=== PATIENT | female | born 1975 | race Caucasian/White ===

== ENCOUNTER 2016-11-18 14:17 | Emergency (ER) | payer BC, OTHER ==
[~2016-11-18] VITALS: Ht 172.7 cm; Wt 122.5 kg
[~2016-11-18 14:17] MED LIST: ACHYD1T PO; DCS100C PO; ESTR1TAB24 PO; IBP600T1 PO; IBP800T PO
[2016-11-18] MEDS ORDERED: NS IV 1000 ML 1,000 ML IV ONE (14:52)
[2016-11-18] MEDS ORDERED: KETOROLAC 30 MG/ML VIAL IVP STA (15:06)
[2016-11-18] MEDS ORDERED: fentaNYL INJECTION 100 MCG/2 ML AMP IVP STA (15:06)
[2016-11-18 15:32] LABS: BASOPHILS % (AUTO) 0 % (0-10); EOSINOPHILS # (AUTO) 0.2 10^3/uL (0.0-0.3); EOSINOPHILS % (AUTO) 1 % (0-10); LYMPHOCYTES # (AUTO) 2.9 X 10^3 (1.0-4.0); LYMPHOCYTES % (AUTO) 23 % (12-44); MEAN CORPUSCULAR HEMOGLOBIN 30 PG (25-34); MEAN CORPUSCULAR HGB CONC 34 G/DL (32-36); MEAN CORPUSCULAR VOLUME 89 FL (80-99); MEAN PLATELET VOLUME 10.5 FL (7.4-10.4); MONOCYTES # (AUTO) 0.9 X 10^3 (0.0-1.0); MONOCYTES % (AUTO) 7 % (0-12); NEUTROPHILS # (AUTO) 8.6 X 10^3 (1.8-7.8); NEUTROPHILS % (AUTO) 69 % (42-75); PLATELET COUNT 242 10^3/uL (130-400); RED BLOOD COUNT 4.56 10^6/uL (4.35-5.85); RED CELL DISTRIBUTION WIDTH 13.4 % (10.0-14.5); WHITE BLOOD COUNT 12.6 10^3/uL (4.3-11.0)
[2016-11-18 15:42] LABS: ALANINE AMINOTRANSFERASE 25 U/L (0-55); ALBUMIN 4.1 GM/DL (3.2-4.5); ANION GAP 8 MMOL/L (5-14); ASPARTATE AMINO TRANSFERASE 16 U/L (5-34); BILIRUBIN,TOTAL 0.4 MG/DL (0.1-1.0); BLOOD UREA NITROGEN 8 MG/DL (7-18); BUN/CREATININE RATIO 11; CALCIUM 9.6 MG/DL (8.5-10.1); CARBON DIOXIDE 26 MMOL/L (21-32); CHLORIDE 104 MMOL/L (98-107); CREATININE SERUM 0.72 MG/DL (0.60-1.30); GFR ESTIMATED > 60; GLUCOSE 123 MG/DL (70-105); POTASSIUM 3.8 MMOL/L (3.6-5.0); SODIUM 138 MMOL/L (135-145); TOTAL PROTEIN 7.1 GM/DL (6.4-8.2); hs C REACTIVE PROTEIN 4.28 MG/DL (0.00-0.50)
--- NOTE | 2016-11-18 15:51 | ED General ---
General Chief Complaint: Facial Problems Stated Complaint: SWELLING LEFT SIDE OF FACE Nursing Triage Note: PT HAS L SIDED FACIAL SWELLING FOR APPROX 4 DAYS, PT HAD ROCEPHIN IM YESTERDAY, WAS SEEN AT DR SIMENTAL OFFICE YESTERDAY Nursing Sepsis Screen: No Definite Risk Source of Information: Patient Exam Limitations: No Limitations History of Present Illness Time Seen by Provider: 15:00 Initial Comments Here with report of left-sided facial swelling over the last 4 days. Seen by her primary care provider and given shot of Rocephin yesterday. Apparently she has had previous surgery to the lymph nodes on that side of the face. This was with an ear nose and throat surgeon from [place]. This person apparently told her that she would need to see somebody else if there is other concerns. She has prescription for Omnicef but has not filled it yet. Reports pain quite significant. Reports that she has felt hot but no documented fever. Denies nausea, vomiting, breathing or swallowing problems. Does have pain to the face causing difficulty with opening mouth. Timing/Duration: 3-4 Days Severity: Moderate Associated Systoms: No Fever/Chills, No Nausea/Vomiting, No Shortness of Air, No Weakness Allergies and Home Medications Allergies Coded Allergies: sumatriptan (Unverified Allergy, Mild, 08/04/12) Home Medications Docusate Sodium 100 Mg Capsule, 100 MG PO BID, (Reported) Estradiol 1 Mg Tablet, 2 PO DAILY, (Reported) Hydrocodone Bit/Acetaminophen 1 Tab Tablet, 1-2 PO Every 3 Hours PRN, (Reported) Ibuprofen 800 Mg Tab, 800 MG PO Q6H PRN, (Reported) Constitutional: see HPI, No chills, fever, No weakness EENTM: see HPI, mouth pain, mouth swelling, No dental problems Respiratory: no symptoms reported Cardiovascular: no symptoms reported Gastrointestinal: no symptoms reported, No nausea, No vomiting Genitourinary: no symptoms reported Musculoskeletal: no symptoms reported Skin: no symptoms reported All Other Systems Reviewed Negative Unless Noted: Yes Past Doxsdid-Xdzgjn-Fyjwua Hx Patient Social History Alcohol Use: Denies Use Recreational Drug Use: No Smoking Status: Never a Smoker Recent Foreign Travel: No Contact w/Someone Who Travel: No Recent Infectious Disease Expo: No Recent Hopitalizations: No Physical Abuse: No Sexual Abuse: No Surgeries History of Surgeries: Yes Surgeries: Gallbladder, 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 Respiratory History of Respiratory Disorde: No Cardiovascular History of Cardiac Disorders: No Neurological History of Neurological Disord: No 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 Gastrointestinal History of Gastrointestinal Di: Yes Musculoskeletal History of Musculoskeletal Dis: No Endocrine History of Endocrine Disorders: No Psychosocial History of Psychiatric Problem: Yes Behavioral Health Disorders: Depression Suicide Risk Score: 0 Integumentary History of Skin or Integumenta: No Blood Transfusions History of Blood Disorders: No Reviewed Nursing Assessment Reviewed/Agree w Nursing PMH: Yes Family Medical History Significant Family History: No Pertinent Family Hx Physical Exam Vital Signs Vital Sign - Last 12Hours 11/18/16 14:35 Temp 98.3 Pulse 98 Resp 18 B/P (MAP) 153/92 Pulse Ox 100 Capillary Refill : Less Than 3 Seconds General Appearance: No Apparent Distress, WD/WN HEENT: PERRL/EOMI, Pharynx Normal, Other (moderate tenderness and swelling near the left parotid gland. Within the mouth near the rear molar there is redness with small pustule centrally at the gland on the bucal surface. Very tender to palpation. Moderate swelling noted.) Neck: Full Range of Motion, Non Tender, Supple Respiratory: Lungs Clear, Normal Breath Sounds Cardiovascular: Regular Rate, Rhythm, No Murmur Gastrointestinal: Non Tender, Soft Back: Normal Inspection, No CVA Tenderness, No Vertebral Tenderness Extremity: Normal Range of Motion, Non Tender Neurologic/Psychiatric: Alert, Oriented x3 Skin: Normal Color, Warm/Dry Progress/Results/Core Measures Results/Orders Lab Results Laboratory Tests Test 11/18/16 15:15 Range/Units White Blood Count 12.6 H 4.3-11.0 10^3/uL Red Blood Count 4.56 4.35-5.85 10^6/uL Hemoglobin 13.7 11.5-16.0 G/DL Hematocrit 40 35-52 % Mean Corpuscular Volume 89 80-99 FL Mean Corpuscular Hemoglobin 30 25-34 PG Mean Corpuscular Hemoglobin Concent 34 32-36 G/DL Red Cell Distribution Width 13.4 10.0-14.5 % Platelet Count 242 130-400 10^3/uL Mean Platelet Volume 10.5 H 7.4-10.4 FL Neutrophils (%) (Auto) 69 42-75 % Lymphocytes (%) (Auto) 23 12-44 % Monocytes (%) (Auto) 7 0-12 % Eosinophils (%) (Auto) 1 0-10 % Basophils (%) (Auto) 0 0-10 % Neutrophils # (Auto) 8.6 H 1.8-7.8 X 10^3 Lymphocytes # (Auto) 2.9 1.0-4.0 X 10^3 Monocytes # (Auto) 0.9 0.0-1.0 X 10^3 Eosinophils # (Auto) 0.2 0.0-0.3 10^3/uL Basophils # (Auto) 0.0 0.0-0.1 10^3/uL Sodium Level 138 135-145 MMOL/L Potassium Level 3.8 3.6-5.0 MMOL/L Chloride Level 104 98-107 MMOL/L Carbon Dioxide Level 26 21-32 MMOL/L Anion Gap 8 5-14 MMOL/L Blood Urea Nitrogen 8 7-18 MG/DL Creatinine 0.72 0.60-1.30 MG/DL Estimat Glomerular Filtration Rate > 60 BUN/Creatinine Ratio 11 Glucose Level 123 H 70-105 MG/DL Calcium Level 9.6 8.5-10.1 MG/DL Total Bilirubin 0.4 0.1-1.0 MG/DL Aspartate Amino Transf (AST/SGOT) 16 5-34 U/L Alanine Aminotransferase (ALT/SGPT) 25 0-55 U/L Alkaline Phosphatase 91 40-136 U/L C-Reactive Protein High Sensitivity 4.28 H 0.00-0.50 MG/DL Total Protein 7.1 6.4-8.2 GM/DL Albumin 4.1 3.2-4.5 GM/DL My Orders Orders - JORDANA SMITH MD Saline Lock/Iv-Start (11/18/16 14:52) Cbc With Automated Diff (11/18/16 14:52) Comprehensive Metabolic Panel (11/18/16 14:52) Hs C Reactive Protein (11/18/16 14:52) Ns Iv 1000 Ml (Sodium Chloride 0.9%) (11/18/16 14:52) Fentanyl Injection (Sublimaze Injection (11/18/16 15:06) Ketorolac Injection (Toradol Injection) (11/18/16 15:06) Ct Maxillofacial W (11/18/16 16:30) Iohexol Injection (Omnipaque 350 Mg/Ml 1 (11/18/16 16:45) Ns (Ivpb) (Sodium Chloride 0.9% Ivpb Bag (11/18/16 16:45) Oxycodone/Apap 5/325mg Tablet (Percocet (11/18/16 17:45) Medications Given in ED Current Medications Medications Dose Ordered Sig/Emily Route Start Time Stop Time Status Last Admin Dose Admin Iohexol 100 ml ONCE ONCE IV 11/18/16 16:45 11/18/16 16:46 DC 11/18/16 16:49 100 ML Sodium Chloride 100 ml ONCE ONCE IV 11/18/16 16:45 11/18/16 16:46 DC 11/18/16 16:50 80 ML Sodium Chloride 1,000 ml @ 0 mls/hr Q0M ONCE IV 11/18/16 14:52 11/18/16 14:53 DC 11/18/16 15:21 1,000 MLS/HR Vital Signs/I&O Vital Sign - Last 12Hours 11/18/16 14:35 Temp 98.3 Pulse 98 Resp 18 B/P (MAP) 153/92 Pulse Ox 100 Intake and Output 11/19/16 00:00 Intake Total 1000 ml Balance 1000 ml Blood Pressure Mean: 112 Progress Note : Progress Note Seen and evaluated. IV, labs, normal saline 1 L bolus, fentanyl 75 g IV and Toradol [address] maxillofacial with contrast ordered. Monitor patient. CT results noted. I did discuss the case with Dr. Yeh at 1726. Findings discussed. He is recommending Ceftin 250 mg by mouth twice a day as well as pain meds with warm moist heat and massage agreement with plan. Also recommend sour drops or sugar-free candy. He will see the patient in the office. Requesting that she call tomorrow morning for appointment and he will see her soon. All of the findings and concerns were discussed with the patient and she agrees. It turns out that her doctor at actually scheduled her an appointment with Dr. Yeh on 29 November although she has markedly worsened since that appointment was made. Earlier appointment would be appreciated. Discharged home with return precautions. Patient verbalize understanding of instructions and agreement with plan. Diagnostic Imaging Diagonstic Imaging: CT Plain Films/CT/US/NM/MRI: other (maxillofacial) Comments NAME: VIRI BRYAN MED REC#: [id number] PT STATUS: REG ER : 1975 PHYSICIAN: JORDANA SMITH MD ADMIT DATE: 11/18/16/ER Signed Date of Exam: 11/18/16 CT MAXILLOFACIAL W PROCEDURE: CT maxillofacial with contrast. TECHNIQUE: After intravenous administration of contrast, axial images were obtained through the face and reformatted into coronal and sagittal planes. INDICATION: Facial swelling. COMPARISON: None. FINDINGS: No acute fracture or other osseous abnormality is seen. The paranasal sinuses and mastoids are clear. The nasal septum is minimally tortuous to the right. The ostiomeatal units are patent bilaterally. The left parotid gland is asymmetrically large and heterogeneous with respect to the right parotid gland. There is moderate enhancement/high density within the particularly the superficial portion of the parotid gland on the left, suggestive of parotitis. There are a few nonenlarged but prominent lymph nodes in the submandibular and submental as well as jugular chains which are probably reactive but nonspecific. Both submandibular glands are slightly prominent in size but otherwise unremarkable. No additional focal mass or abscess is seen. No acute osseous abnormality is suspected. IMPRESSION: 1. The left parotid gland is asymmetrically large heterogeneous with moderate areas of high density/enhancement, particularly in the superficial portion of the gland. No focal mass or abscess is seen. The findings are suggestive of parotitis. 2. Scattered lymph nodes which are prominent but non-pathologically enlarged or nonspecific but likely reactive. Dictated by: Dictated on workstation # [id number] Dict: 11/18/161703 Trans: 11/18/161713 Interpreted by: MARCOS HA DO Electronically signed by: MARCOS HA DO 11/18/161713 Departure Impression Impression: Primary Impression: Parotiditis Disposition: 01 HOME, SELF-CARE Condition: Stable Departure-Patient Inst. Decision time for Depature: 17:49 Referrals: ANTONIO SIMENTAL MD (PCP/Family) Primary Care Physician Patient Instructions: Parotitis Add. Discharge Instructions: All discharge instructions reviewed with patient and/or family. Voiced understanding. Take medications as directed. Follow-up with Dr. Yeh within the next few days. Call his office in the morning for appointment. Return for worse pain, fever, vomiting, weakness, breathing problems, difficulty with swallowing or other concerns as needed. You may use warm, moist heat to the area. Gently massage gland forward to improve excretion. Drink plenty of fluids. You may use sour drops or sugar-free sour candy to help gland express itself. Scripts Oxycodone HCl/Acetaminophen (Oxycodone-Acetaminophen 10-325) 1 Each Tablet 1 EACH PO Q6H, #20 TAB Prov: JORDANA SMITH MD 11/18/16 Cefuroxime Axetil (Cefuroxime) 250 Mg Tablet 250 MG PO BID, #20 TAB Prov: JORDANA SMITH MD 11/18/16 Copy Copies To 1: ARAVIND YEH MD, TIMOTHY D MD Nov 18, 2016 15:51
[2016-11-18] MEDS ORDERED: IOHEXOL 350 MG/ML 100 ML (OMNIPAQUE 350) VIAL IV ONE (16:45)
[2016-11-18] MEDS ORDERED: NS 100 ML (IVPB) BAG IV ONE (16:45)
--- NOTE | 2016-11-18 17:13 | Diagnostic Imaging Report ---
PROCEDURE: CT maxillofacial with contrast. TECHNIQUE: After intravenous administration of contrast, axial images were obtained through the face and reformatted into coronal and sagittal planes. INDICATION: Facial swelling. COMPARISON: None. FINDINGS: No acute fracture or other osseous abnormality is seen. The paranasal sinuses and mastoids are clear. The nasal septum is minimally tortuous to the right. The ostiomeatal units are patent bilaterally. The left parotid gland is asymmetrically large and heterogeneous with respect to the right parotid gland. There is moderate enhancement/high density within the particularly the superficial portion of the parotid gland on the left, suggestive of parotitis. There are a few nonenlarged but prominent lymph nodes in the submandibular and submental as well as jugular chains which are probably reactive but nonspecific. Both submandibular glands are slightly prominent in size but otherwise unremarkable. No additional focal mass or abscess is seen. No acute osseous abnormality is suspected. IMPRESSION: 1. The left parotid gland is asymmetrically large heterogeneous with moderate areas of high density/enhancement, particularly in the superficial portion of the gland. No focal mass or abscess is seen. The findings are suggestive of parotitis. 2. Scattered lymph nodes which are prominent but non-pathologically enlarged or nonspecific but likely reactive. Dictated by: Dictated on workstation # [id number]
[2016-11-18] MEDS ORDERED: oxyCODONE/APAP 5/325MG (PERCOCET 5) TABLET PO STA (17:45)
[2016-11-18] MEDS ORDERED: CEFU250T80 PO (18:02)
[2016-11-18] MEDS ORDERED: OXYC-465 PO (18:02)
[2016-11-18 18:19] VITALS: BP 135/86
== END 2016-11-18 18:19 | disposition home or self-care (01) ==
LOC: EDUNIT# 14:17 → ER 14:21
DX: K11.20 Sialoadenitis, unspecified; Z90.710 Acquired absence of both cervix and uterus; Z87.19 Personal history of other diseases of the digestive system; F32.9 Major depressive disorder, single episode, unspecified
CPT/HCPCS: 36415; 70487; 80053; 85025; 86141

== ENCOUNTER 2017-02-19 13:31 | Inpatient (IN) | payer OTHER ==
[~2017-02-19] VITALS: Ht 175.3 cm; Wt 121.6 kg
[~2017-02-19 13:31] MED LIST changes: +CEFU250T80 PO; +OXYC-465 PO
[2017-02-19] MEDS ORDERED: fentaNYL INJECTION 100 MCG/2 ML AMP IVP STA (13:56)
[2017-02-19 14:30] LABS: BASOPHILS % (AUTO) 0 % (0-10); EOSINOPHILS # (AUTO) 0.2 10^3/uL (0.0-0.3); EOSINOPHILS % (AUTO) 1 % (0-10); HEMATOCRIT 35 % (35-52); HEMOGLOBIN 13.2 G/DL (11.5-16.0); LYMPHOCYTES # (AUTO) 4.3 X 10^3 (1.0-4.0); LYMPHOCYTES % (AUTO) 38 % (12-44); MEAN CORPUSCULAR HEMOGLOBIN 30 PG (25-34); MEAN CORPUSCULAR HGB CONC 38 G/DL (32-36); MEAN CORPUSCULAR VOLUME 80 FL (80-99); MEAN PLATELET VOLUME 9.1 FL (7.4-10.4); MONOCYTES % (AUTO) 9 % (0-12); NEUTROPHILS # (AUTO) 5.7 X 10^3 (1.8-7.8); NEUTROPHILS % (AUTO) 51 % (42-75); PLATELET COUNT 281 10^3/uL (130-400); RED CELL DISTRIBUTION WIDTH 13.2 % (10.0-14.5); WHITE BLOOD COUNT 11.1 10^3/uL (4.3-11.0)
--- NOTE | 2017-02-19 14:40 | ED General ---
General Chief Complaint: Skin/Wound Problems Stated Complaint: POSS ABCESS--POST OP Nursing Triage Note: C/O LEFT FACIAL SWELLING. PT HAD A SIALENDESCOPY PERFORMED AT [facility] AT 02-02-17. HX OF PAROTID STONES. REPORTS PAIN/REDNESS/SWELLING 48 HOURS AFTER THE PROCEDURE BUT SYMPTOMS ARE GETTING WORSE. CURRENTLY ON CLINDYMYACIN. Nursing Sepsis Screen: No Definite Risk Source of Information: Patient Exam Limitations: No Limitations History of Present Illness Time Seen by Provider: 14:25 Initial Comments Here with report of increased swelling to the left side of her face. She had a special procedure done to remove the stones in her parotid gland but apparently it failed. Since she's had increased swelling and pain. She is currently on antibiotics and this is not working. She reports that she had fever of 102F today. She is currently on clindamycin. Was instructed to come to the ER for evaluation for infection and CT of her face. Normally followed at [facility]. Timing/Duration: Getting Worse, Other (2 weeks) Severity: Moderate, Severe Modifying Factors: worse with Movement Associated Systoms: No Chest Pain, No Cough, Fever/Chills, No Nausea/Vomiting, No Shortness of Air, No Weakness Allergies and Home Medications Allergies Coded Allergies: sumatriptan (Unverified Allergy, Mild, 08/04/12) Home Medications Cefuroxime Axetil 250 Mg Tablet, 250 MG PO BID, #20 Prescribed by: JORDANA SMITH on 11/18/161801 Docusate Sodium 100 Mg Capsule, 100 MG PO BID, (Reported) Estradiol 1 Mg Tablet, 2 PO DAILY, (Reported) Hydrocodone Bit/Acetaminophen 1 Tab Tablet, 1-2 PO Every 3 Hours PRN, (Reported) Ibuprofen 800 Mg Tab, 800 MG PO Q6H PRN, (Reported) Oxycodone HCl/Acetaminophen 1 Each Tablet, 1 EACH PO Q6H, #20 Prescribed by: JORDANA SMITH on 11/18/161801 Constitutional: see HPI, No chills, fever, malaise, No weakness EENTM: see HPI, mouth pain, mouth swelling Respiratory: no symptoms reported, No cough, No short of breath Cardiovascular: no symptoms reported Gastrointestinal: No nausea, No vomiting Genitourinary: no symptoms reported Musculoskeletal: no symptoms reported Skin: change in color (left cheek), lumps (left cheek) Psychiatric/Neurological: No Symptoms Reported All Other Systems Reviewed Negative Unless Noted: Yes Past Lcrnsva-Hovshc-Gdfrpz Hx Patient Social History Alcohol Use: Denies Use Recreational Drug Use: No Smoking Status: Never a Smoker Recent Foreign Travel: No Contact w/Someone Who Travel: No Recent Infectious Disease Expo: No Recent Hopitalizations: No Surgeries History of Surgeries: Yes (parotid gland surgery) Surgeries: Gallbladder, 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 Respiratory History of Respiratory Disorde: No Cardiovascular History of Cardiac Disorders: No Neurological History of Neurological Disord: No 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 Gastrointestinal History of Gastrointestinal Di: Yes Musculoskeletal History of Musculoskeletal Dis: No Endocrine History of Endocrine Disorders: No Psychosocial History of Psychiatric Problem: Yes Behavioral Health Disorders: Depression Integumentary History of Skin or Integumenta: No Blood Transfusions History of Blood Disorders: No Reviewed Nursing Assessment Reviewed/Agree w Nursing PMH: Yes Family Medical History Significant Family History: No Pertinent Family Hx Physical Exam Vital Signs Vital Sign - Last 12Hours 02/19/17 13:54 Temp 100.1 Pulse 82 Resp 18 B/P (MAP) 167/110 (129) Pulse Ox 98 O2 Delivery Room Air Capillary Refill : Less Than 3 Seconds General Appearance: No Apparent Distress, WD/WN HEENT: PERRL/EOMI, Pharynx Normal, Other (large swelling over the area of the parotid gland on the left with erythema to the face around that area swelling.) Neck: Non Tender, Supple Respiratory: Lungs Clear, Normal Breath Sounds Cardiovascular: Regular Rate, Rhythm, No Murmur Gastrointestinal: Non Tender, Soft Back: Normal Inspection, No CVA Tenderness, No Vertebral Tenderness Extremity: Normal Range of Motion, Non Tender Neurologic/Psychiatric: Alert, Oriented x3 Skin: Normal Color, Warm/Dry Focused Exam Evaluation Lactate Level Laboratory Tests 02/19/17 14:20: Lactic Acid Level 0.95 Lactic Acid Level Laboratory Tests Test 02/19/17 14:20 Lactic Acid Level 0.95 MMOL/L (0.50-2.00) Progress/Results/Core Measures Suspected Sepsis Recent Fever Within 48 Hours: Yes Infection Criteria Present: Documented Infection New/Unexplained Altered Menta: No Sepsis Screen: No Definite Risk Sepsis Diagnosis: SIRS Temperature:100.1 Pulse: 82 Respiratory Rate: 18 Laboratory Tests 02/19/17 14:20: White Blood Count 11.1H Blood Pressure 167 /110 Mean: 129 Laboratory Tests 02/19/17 14:20: Lactic Acid Level 0.95 Laboratory Tests 02/19/17 14:20: Creatinine 0.76, Platelet Count 281, Total Bilirubin 0.4 02/19/17 14:36: INR Comment 0.9 Results/Orders Lab Results Laboratory Tests Test 02/19/17 14:20 02/19/17 14:36 Range/Units White Blood Count 11.1 H 4.3-11.0 10^3/uL Red Blood Count 4.40 4.35-5.85 10^6/uL Hemoglobin 13.2 11.5-16.0 G/DL Hematocrit 35 35-52 % Mean Corpuscular Volume 80 80-99 FL Mean Corpuscular Hemoglobin 30 25-34 PG Mean Corpuscular Hemoglobin Concent 38 H 32-36 G/DL Red Cell Distribution Width 13.2 10.0-14.5 % Platelet Count 281 130-400 10^3/uL Mean Platelet Volume 9.1 7.4-10.4 FL Neutrophils (%) (Auto) 51 42-75 % Lymphocytes (%) (Auto) 38 12-44 % Monocytes (%) (Auto) 9 0-12 % Eosinophils (%) (Auto) 1 0-10 % Basophils (%) (Auto) 0 0-10 % Neutrophils # (Auto) 5.7 1.8-7.8 X 10^3 Lymphocytes # (Auto) 4.3 H 1.0-4.0 X 10^3 Monocytes # (Auto) 1.0 0.0-1.0 X 10^3 Eosinophils # (Auto) 0.2 0.0-0.3 10^3/uL Basophils # (Auto) 0.0 0.0-0.1 10^3/uL Sodium Level 139 135-145 MMOL/L Potassium Level 3.7 3.6-5.0 MMOL/L Chloride Level 104 98-107 MMOL/L Carbon Dioxide Level 25 21-32 MMOL/L Anion Gap 10 5-14 MMOL/L Blood Urea Nitrogen 12 7-18 MG/DL Creatinine 0.76 0.60-1.30 MG/DL Estimat Glomerular Filtration Rate > 60 BUN/Creatinine Ratio 16 Glucose Level 105 70-105 MG/DL Lactic Acid Level 0.95 0.50-2.00 MMOL/L Calcium Level 9.3 8.5-10.1 MG/DL Total Bilirubin 0.4 0.1-1.0 MG/DL Aspartate Amino Transf (AST/SGOT) 24 5-34 U/L Alanine Aminotransferase (ALT/SGPT) 35 0-55 U/L Alkaline Phosphatase 81 40-136 U/L C-Reactive Protein High Sensitivity 1.89 H 0.00-0.50 MG/DL Total Protein 7.0 6.4-8.2 GM/DL Albumin 4.0 3.2-4.5 GM/DL Prothrombin Time 12.5 12.2-14.7 SEC INR Comment 0.9 0.8-1.4 Activated Partial Thromboplast Time 26 24-35 SEC My Orders Orders - JORDANA SMITH MD Cbc With Automated Diff (02/19/17 13:48) Comprehensive Metabolic Panel (02/19/17 13:48) Lactic Acid Analyzer (02/19/17 13:48) Blood Culture (02/19/17 13:48) Protime With Inr (02/19/17 13:48) Partial Thromboplastin Time (02/19/17 13:48) O2 (02/19/17 13:48) Saline Lock/Iv-Start (02/19/17 13:48) Vital Signs Adult Sepsis Patie Q1H (02/19/17 13:48) Remove Rings In Anticipation O (02/19/17 13:48) Fentanyl Injection (Sublimaze Injection (02/19/17 13:56) Ct Maxillofacial W (02/19/17 14:35) Iohexol Injection (Omnipaque 350 Mg/Ml 1 (02/19/17 15:00) Ns (Ivpb) (Sodium Chloride 0.9% Ivpb Bag (02/19/17 15:00) Pharmacy Communication (Pharmacy Communi (02/19/17 14:46) Hs C Reactive Protein (02/19/17 14:57) Ketorolac Injection (Toradol Injection) (02/19/17 16:44) Hydromorphone Injection (Dilaudid Inject (02/19/17 16:44) Ns Iv 1000 Ml (Sodium Chloride 0.9%) (02/19/17 17:09) Let Solution (Let Solution) (02/19/17 17:28) Let Solution (Let Solution) (02/19/17 17:28) Anaerobic Culture (02/19/17 17:51) Wound Culture (02/19/17 17:51) Medications Given in ED Current Medications Medications Dose Ordered Sig/Emily Route Start Time Stop Time Status Last Admin Dose Admin Iohexol 100 ml ONCE ONCE IV 02/19/17 15:00 02/19/17 15:01 DC 02/19/17 15:23 100 ML Sodium Chloride 100 ml ONCE ONCE IV 02/19/17 15:00 02/19/17 15:01 DC 02/19/17 15:23 80 ML Sodium Chloride 1,000 ml @ 0 mls/hr Q0M ONCE IV 02/19/17 17:09 02/19/17 17:10 DC 02/19/17 17:41 1,000 MLS/HR Tetracaine/ Epinephrine/ Lidocaine 1 ea STK-MED ONCE .ROUTE 02/19/17 17:28 02/19/17 17:31 DC 02/19/17 17:33 1 EA Vital Signs/I&O Vital Sign - Last 12Hours 02/19/17 02/19/17 02/19/17 02/19/17 13:54 14:20 17:00 17:00 Temp 100.1 100.1 100.1 100.1 Pulse 82 Resp 18 B/P (MAP) 167/110 (129) Pulse Ox 98 O2 Delivery Room Air Capillary Refill : Less Than 3 Seconds Blood Pressure Mean: 129 Progress Note : Progress Note Seen and evaluated. IV, labs, blood cultures and lactic acid ordered. Normal saline [address] of the face with contrast. Fentanyl 75 g IV ordered. Monitor patient. 1614: I did discuss the case with the nurse outside production inspector for Dr. Louis ENT at which is the patient's surgeon. She will try to get a hold him and he will call me back related to abscess found on CT scan. I did discuss the case with Dr. Louis ENT at . He is recommending draining locally of possible and if that is not available then transfer to . I did discuss the case with Dr. Yeh afterwards and he will see the patient in the ER. 17 15: Dr. Yeh is seeing the patient in the ER. 1730: Dr. Yeh will do a needle abscess drainage and wound like to have the patient admitted. I did discuss the case with Dr. Sadler and she graciously accepts patient for admission , inpatient status. Dr. Yeh appreciates and will consult and continue to see patient while admitted. We will initiate cefuroxime 1.5 g IV as well as clindamycin 900 mg IV, both every 8 hours. Also pain control be ordered. Patient is in agreement with plan. Cultures ordered and sent. Diagnostic Imaging Diagonstic Imaging: CT Plain Films/CT/US/NM/MRI: other Comments VIA [facility]. [place] NAME: VIRI BRYAN [facility] REC#: [id number] PT STATUS: REG ER : 1975 PHYSICIAN: JORDANA SMITH MD ADMIT DATE: 02/19/17/ER Draft Date of Exam:02/19/17 CT MAXILLOFACIAL W PROCEDURE: CT maxillofacial with contrast. TECHNIQUE: After intravenous administration of contrast, axial images were obtained through the face and reformatted into coronal and sagittal planes. INDICATION: History of parotid duct stone surgery. FINDINGS: There is an oval calcification present measuring 10 x 5 mm which is present in the superficial portion of the parotid gland on the left. There is a surrounded fluid collection measuring approximately 3 x 2 cm. This does show enhancement of a thickened wall surrounding the fluid, consistent with abscess. The calcification on previous exam of 11/18/2016 was noted to be in the distal parotid duct region and has been pushed posteriorly since that time. IMPRESSION: 1. Parotid duct stone has been manipulated since previous CT scan, has been pushed posteriorly into the superficial parotid gland. There is an associated 3 x 2 cm fluid collection with enhancing wall, consistent with abscess. These findings were discussed with Dr. Smith. Dictated on workstation # [id number] Dict: 02/19/17 1536 Trans: 02/19/17 1559 [id number] Interpreted by: RICHARD ABRAHAM MD Electronically signed by: Reviewed: Reviewed by Me Departure Communication (Admissions) Time/Spoke to Admitting Phy: 17:34 Time/Spoke to Consulting Phy: 17:15 Impression Impression: Primary Impression: Abscess of parotid gland Additional Impression: Calculus of parotid gland Disposition: ADMITTED INPATIENT Condition: Stable Admissions Decision to Admit Reason: Admit from ER (General) Decision to Admit/Date: Feb 19, 2017 Time/Decision to Admit Time: 17:34 Departure-Patient Inst. Referrals: ANTONIO SIMENTAL MD (PCP/Family) Primary Care Physician JORDANA SMITH MD Feb 19, 2017 14:40
[2017-02-19 14:48] LABS: ALANINE AMINOTRANSFERASE 35 U/L (0-55); ALKALINE PHOSPHATASE 81 U/L (40-136); BILIRUBIN,TOTAL 0.4 MG/DL (0.1-1.0); BUN/CREATININE RATIO 16; CALCIUM 9.3 MG/DL (8.5-10.1); CARBON DIOXIDE 25 MMOL/L (21-32); CHLORIDE 104 MMOL/L (98-107); CREATININE SERUM 0.76 MG/DL (0.60-1.30); GFR ESTIMATED > 60; GLUCOSE 105 MG/DL (70-105); POTASSIUM 3.7 MMOL/L (3.6-5.0); SODIUM 139 MMOL/L (135-145)
[2017-02-19 14:56] LABS: INR 0.9 (0.8-1.4); PROTHROMBIN TIME PATIENT 12.5 SEC (12.2-14.7)
[2017-02-19] MEDS ORDERED: NS 100 ML (IVPB) BAG IV ONE (15:00)
[2017-02-19] MEDS ORDERED: IOHEXOL 350 MG/ML 100 ML (OMNIPAQUE 350) VIAL IV ONE (15:00)
--- NOTE | 2017-02-19 15:59 | Diagnostic Imaging Report ---
PROCEDURE: CT maxillofacial with contrast. TECHNIQUE: After intravenous administration of contrast, axial images were obtained through the face and reformatted into coronal and sagittal planes. INDICATION: History of parotid duct stone surgery. FINDINGS: There is an oval calcification present measuring 10 x 5 mm which is present in the superficial portion of the parotid gland on the left. There is a surrounded fluid collection measuring approximately 3 x 2 cm. This does show enhancement of a thickened wall surrounding the fluid, consistent with abscess. The calcification on previous exam of 11/18/2016 was noted to be in the distal parotid duct region and has been pushed posteriorly since that time. IMPRESSION: 1. Parotid duct stone has been manipulated since previous CT scan, has been pushed posteriorly into the superficial parotid gland. There is an associated 3 x 2 cm fluid collection with enhancing wall, consistent with abscess. These findings were discussed with Dr. Curry. Dictated by: Dictated on workstation # [id number]
[2017-02-19] MEDS ORDERED: HYDROmorphone (DILAUDID) 2 MG/ML VIAL IVP STA (16:44)
[2017-02-19] MEDS ORDERED: KETOROLAC 30 MG/ML VIAL IVP STA (16:44)
[2017-02-19] MEDS ORDERED: NS IV 1000 ML 1,000 ML IV ONE (17:09)
[2017-02-19] MEDS ORDERED: L.E.T. SYRINGE 5 ML MM STA (17:28)
[2017-02-19] MEDS ORDERED: L.E.T. SYRINGE 5 ML ONE (17:28)
--- NOTE | 2017-02-19 19:00 | Progress Note-Standard ---
Standard Progress Note Progress Notes/Assess & Plan Date Seen by Provider: Feb 19, 2017 Time Seen by Provider: 18:00 Progress/Assessment & Plan ENT-Rao Patient see verónica evaluated in the ER CL-jjucchhu-ujlgg 2 by 3cm abscess in superficial antreior parotid region fragments of the stones seen as well OP-mild to moderate trismus patient has pain and has had dilaudid and toradol. Procedure-Informed consent obtained-skin overlying the abscess aneswith LET 18 gauge needle uses to percutaneously aspirate the abscess-at least 6cc of mariusz pus removed arodibic and anaerobic cultures taken and sent to the lab-mild oozing noted with continued drainage would rec cefuroxime 1.5gm IV q 8 hours and cleocin 900mg tid will follow up in am ulitmately will need to be reevaluataed at with probable need to remove thegland once current infection has cleared. james ladjust antibiotics once cx and sens back Appreciate Dr Sadler taking care of the patient Final Diagnosis Left Parotid Abscess ARAVIND POSADA MD Feb 19, 2017 7:00 pm
[2017-02-19 19:05] VITALS: BP 138/72
[2017-02-19] MEDS ORDERED: CATHETER FLUSH 10 ML SYR IV PRN (19:15)
[2017-02-19] MEDS: fentaNYL INJECTION 100 MCG/2 ML AMP IV PRN (20:22)
[2017-02-19] MEDS: CEFUROXIME 1.5 GM/NS 50 ML IVPB IV SCH ×2 (20:22)
[2017-02-19] MEDS: CATHETER FLUSH 10 ML SYR IV SCH (20:23)
[2017-02-19] MEDS: CLINDAMYCIN 900 MG/NS 50 ML IVPB IV SCH ×2 (20:23)
[2017-02-20] VITALS (7 sets, daily range): BP systolic 120–142; BP diastolic 62–74
--- OUTSIDE RECORDS SUMMARY | 2017-02-20 00:32 | XMS REPORT | Continuity of Care Document ---
Author Author [facility] Organization [facility] Address Unknown Phone Unavailable Allergies Active Description Code Type Severity Reaction Onset Reported/Identified Relationship to Patient Clinical Status Yes sumatriptan [id number] Drug Allergy Mild N/A 08/04/2012 Medications There is no data. 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 08/11/2012 YAW RAMSAY MD, Ot 617.0 UTERINE ENDOMETRIOSIS 08/11/2012 YAW RAMSAY MD Ot 617.1 OVARIAN ENDOMETRIOSIS 08/11/2012 YAW RAMSAY MD, Ot 617.3 PELV PERIT ENDOMETRIOSIS 08/11/2012 YAW RAMSAY MD Ot 620.1 CORPUS LUTEUM CYST 08/11/2012 YAW RAMSAY MD, Ot 625.6 FEM STRESS INCONTINENCE 08/11/2012 YAW RAMSAY MD Ot 626.8 MENSTRUAL DISORDER NEC 11/18/2016 Ot 592.0 CALCULUS OF KIDNEY 11/18/2016 YAW RAMSAY MD Ot 285.9 ANEMIA NOS 11/18/2016 YAW RAMSAY MD Ot 617.9 ENDOMETRIOSIS NOS 11/18/2016 YAW RAMSAY MD Ot V72.63 PRE-PROCEDURAL LABORATORY EXAMINATION 11/18/2016 YAW RAMSAY MD, Ot V74.8 SCREEN-BACTERIAL DIS NEC 11/18/2016 JORDANA SMITH MD Ot F32.9 MAJOR DEPRESSIVE DISORDER, SINGLE EPISOD 11/18/2016 JORDANA SMITH MD Ot K11.20 SIALOADENITIS, UNSPECIFIED 11/18/2016 JORDANA SMITH MD Ot R22.0 LOCALIZED SWELLING, MASS AND LUMP, HEAD 11/18/2016 JORDANA SMITH MD, Ot Z87.19 PERSONAL HISTORY OF OTHER DISEASES OF 11/18/2016 JORDANA SMITH MD, Ot Z90.710 ACQUIRED ABSENCE OF BOTH CERVIX AND UTER 11/18/2016 Ot 592.0 CALCULUS OF KIDNEY 11/18/2016 YAW RAMSAY MD, Ot 285.9 ANEMIA NOS 11/18/2016 YAW RAMSAY MD, Ot 617.9 ENDOMETRIOSIS NOS 11/18/2016 YAW RAMSAY MD, Ot V72.63 PRE-PROCEDURAL LABORATORY EXAMINATION 11/18/2016 YWA RAMSAY MD, Ot V74.8 SCREEN-BACTERIAL DIS NEC 11/20/2016 JORDANA SMITH MD, Ot F32.9 MAJOR DEPRESSIVE DISORDER, SINGLE EPISOD 11/20/2016 JORDANA SMITH MD, Ot K11.20 SIALOADENITIS, UNSPECIFIED 11/20/2016 JORDANA SMITH MD, Ot R22.0 LOCALIZED SWELLING, MASS AND LUMP, HEAD 11/20/2016 JORDANA SMITH MD, Ot Z87.19 PERSONAL HISTORY OF OTHER DISEASES OF 11/20/2016 JORDANA SMITH MD, Ot Z90.710 ACQUIRED ABSENCE OF BOTH CERVIX AND UTER Procedures There is no data. Results Test Result Range Complete blood count (CBC) with automated white blood cell (WBC) differential - 11/18/16 15:15 Blood leukocytes automated count (number/volume) 12.6 10*3/uL 4.3-11.0 Blood erythrocytes automated count (number/volume) 4.56 10*6/uL 4.35-5.85 Venous blood hemoglobin measurement (mass/volume) 13.7 g/dL 11.5-16.0 Blood hematocrit (volume fraction) 40 % 35-52 Automated erythrocyte mean corpuscular volume 89 [foz_us] 80-99 Automated erythrocyte mean corpuscular hemoglobin (mass per erythrocyte) 30 pg 25-34 Automated erythrocyte mean corpuscular hemoglobin concentration measurement ( mass/volume) 34 g/dL 32-36 Automated erythrocyte distribution width ratio 13.4 % 10.0-14.5 Automated blood platelet count (count/volume) 242 10*3/uL 130-400 Automated blood platelet mean volume measurement 10.5 [foz_us] 7.4-10.4 Automated blood neutrophils/100 leukocytes 69 % 42-75 Automated blood lymphocytes/100 leukocytes 23 % 12-44 Blood monocytes/100 leukocytes 7 % 0-12 Automated blood eosinophils/100 leukocytes 1 % 0-10 Automated blood basophils/100 leukocytes 0 % 0-10 Blood neutrophils automated count (number/volume) 8.6 10*3 1.8-7.8 Blood lymphocytes automated count (number/volume) 2.9 10*3 1.0-4.0 Blood monocytes automated count (number/volume) 0.9 10*3 0.0-1.0 Automated eosinophil count 0.2 10*3/uL 0.0-0.3 Automated blood basophil count (count/volume) 0.0 10*3/uL 0.0-0.1 Comprehensive metabolic panel - 11/18/16 15:15 Serum or plasma sodium measurement (moles/volume) 138 mmol/L 135-145 Serum or plasma potassium measurement (moles/volume) 3.8 mmol/L 3.6-5.0 Serum or plasma chloride measurement (moles/volume) 104 mmol/L 98-107 Carbon dioxide 26 mmol/L 21-32 Serum or plasma anion gap determination (moles/volume) 8 mmol/L 5-14 Serum or plasma urea nitrogen measurement (mass/volume) 8 mg/dL 7-18 Serum or plasma creatinine measurement (mass/volume) 0.72 mg/dL 0.60-1.30 Serum or plasma urea nitrogen/creatinine mass ratio 11 NRG Serum or plasma creatinine measurement with calculation of estimated glomerular filtration rate > NRG Serum or plasma glucose measurement (mass/volume) 123 mg/dL 70-105 Serum or plasma calcium measurement (mass/volume) 9.6 mg/dL 8.5-10.1 Serum or plasma total bilirubin measurement (mass/volume) 0.4 mg/dL 0.1-1.0 Serum or plasma alkaline phosphatase measurement (enzymatic activity/volume) 91 U/L 40-136 Serum or plasma aspartate aminotransferase measurement (enzymatic activity/ volume) 16 U/L 5-34 Serum or plasma alanine aminotransferase measurement (enzymatic activity/volume ) 25 U/L 0-55 Serum or plasma protein measurement (mass/volume) 7.1 g/dL 6.4-8.2 Serum or plasma albumin measurement (mass/volume) 4.1 g/dL 3.2-4.5 Serum or plasma C reactive protein measurement (mass/volume) - 11/18/16 15:15 Serum or plasma C reactive protein measurement (mass/volume) 4.28 mg /dL 0.00-0.50 Complete blood count (CBC) with automated white blood cell (WBC) differential - 02/19/17 14:20 Blood leukocytes automated count (number/volume) 11.1 10*3/uL 4.3-11.0 Blood erythrocytes automated count (number/volume) 4.40 10*6/uL 4.35-5.85 Venous blood hemoglobin measurement (mass/volume) 13.2 g/dL 11.5-16.0 Blood hematocrit (volume fraction) 35 % 35-52 Automated erythrocyte mean corpuscular volume 80 [foz_us] 80-99 Automated erythrocyte mean corpuscular hemoglobin (mass per erythrocyte) 30 pg 25-34 Automated erythrocyte mean corpuscular hemoglobin concentration measurement ( mass/volume) 38 g/dL 32-36 Automated erythrocyte distribution width ratio 13.2 % 10.0-14.5 Automated blood platelet count (count/volume) 281 10*3/uL 130-400 Automated blood platelet mean volume measurement 9.1 [foz_us] 7.4-10.4 Automated blood neutrophils/100 leukocytes 51 % 42-75 Automated blood lymphocytes/100 leukocytes 38 % 12-44 Blood monocytes/100 leukocytes 9 % 0-12 Automated blood eosinophils/100 leukocytes 1 % 0-10 Automated blood basophils/100 leukocytes 0 % 0-10 Blood neutrophils automated count (number/volume) 5.7 10*3 1.8-7.8 Blood lymphocytes automated count (number/volume) 4.3 10*3 1.0-4.0 Blood monocytes automated count (number/volume) 1.0 10*3 0.0-1.0 Automated eosinophil count 0.2 10*3/uL 0.0-0.3 Automated blood basophil count (count/volume) 0.0 10*3/uL 0.0-0.1 Blood lactic acid measurement (moles/volume) - 02/19/17 14:20 Blood lactic acid measurement (moles/volume) 0.95 mmol/L 0.50-2.00 Comprehensive metabolic panel - 02/19/17 14:20 Serum or plasma sodium measurement (moles/volume) 139 mmol/L 135-145 Serum or plasma potassium measurement (moles/volume) 3.7 mmol/L 3.6-5.0 Serum or plasma chloride measurement (moles/volume) 104 mmol/L 98-107 Carbon dioxide 25 mmol/L 21-32 Serum or plasma anion gap determination (moles/volume) 10 mmol/L 5-14 Serum or plasma urea nitrogen measurement (mass/volume) 12 mg/dL 7-18 Serum or plasma creatinine measurement (mass/volume) 0.76 mg/dL 0.60-1.30 Serum or plasma urea nitrogen/creatinine mass ratio 16 NRG Serum or plasma creatinine measurement with calculation of estimated glomerular filtration rate > NRG Serum or plasma glucose measurement (mass/volume) 105 mg/dL 70-105 Serum or plasma calcium measurement (mass/volume) 9.3 mg/dL 8.5-10.1 Serum or plasma total bilirubin measurement (mass/volume) 0.4 mg/dL 0.1-1.0 Serum or plasma alkaline phosphatase measurement (enzymatic activity/volume) 81 U/L 40-136 Serum or plasma aspartate aminotransferase measurement (enzymatic activity/ volume) 24 U/L 5-34 Serum or plasma alanine aminotransferase measurement (enzymatic activity/volume ) 35 U/L 0-55 Serum or plasma protein measurement (mass/volume) 7.0 g/dL 6.4-8.2 Serum or plasma albumin measurement (mass/volume) 4.0 g/dL 3.2-4.5 Serum or plasma C reactive protein measurement (mass/volume) - 02/19/17 14:20 Serum or plasma C reactive protein measurement (mass/volume) 1.89 mg /dL 0.00-0.50 PT panel in platelet poor plasma by coagulation assay - 02/19/17 14:36 Prothrombin time (PT) in platelet poor plasma by coagulation assay 12.5 s 12.2-14.7 INR in platelet poor plasma or blood by coagulation assay 0.9 0.8-1.4 Activated partial thromboplastin time (aPTT) in platelet poor plasma bycoagulation assay - 02/19/17 14:36 Activated partial thromboplastin time (aPTT) in platelet poor plasma bycoagulation assay 26 s 24-35 Encounters ACCT No. Visit Date/Time Discharge Status Pt. Type Provider Facility Loc./Unit Complaint [id number] 11/18/2016 14:21:00 11/18/2016 18:19:00 DIS Emergency SARAH HIGGINS, JORDANA Chen [facility] ER SWELLING LEFT SIDE OF FACE [id number] 08/10/2012 10:32:00 08/11/2012 16:40:00 DIS Outpatient YAW RAMSAY MD [facility] ENDOMETRIOSIS; CHRONIC PELVIC PAIN [id number] 08/04/2012 08:33:00 08/04/2012 23:59:59 CLS Outpatient YAW RAMSAY MD [facility] PREOP ENDOMETRIOSIS; CHRONIC PELVIC PAIN [id number] 02/19/2017 14:41:00 Document Registration [id number] 03/01/2012 14:35:00 Document Registration
--- OUTSIDE RECORDS SUMMARY | 2017-02-20 00:52 | XMS REPORT | Continuity of Care Document ---
Author Author [facility] Organization [facility] Address Unknown Phone Unavailable Allergies Active Description Code Type Severity Reaction Onset Reported/Identified Relationship to Patient Clinical Status Yes sumatriptan [id number] Drug Allergy Mild N/A 08/04/2012 Medications There is no data. 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 Type Provider Facility Loc./Unit Complaint [id number] 11/18/2016 14:21:00 11/18/2016 18:19:00 DIS Emergency SARAH HIGGINS, JORDANA Chen [facility] ER SWELLING LEFT SIDE OF FACE [id number] 08/10/2012 10:32:00 08/11/2012 16:40:00 DIS Outpatient YAW RAMSAY MD [facility] ENDOMETRIOSIS; CHRONIC PELVIC PAIN [id number] 08/04/2012 08:33:00 08/04/2012 23:59:59 CLS Outpatient YAW RAMSAY MD [facility] PREOP ENDOMETRIOSIS; CHRONIC PELVIC PAIN [id number] 02/19/2017 14:41:00 Document Registration [id number] 03/01/2012 14:35:00 Document Registration
[2017-02-20] MEDS: fentaNYL INJECTION 100 MCG/2 ML AMP IV PRN ×5 (03:08→21:25)
[2017-02-20] MEDS: CEFUROXIME 1.5 GM/NS 50 ML IVPB IV SCH ×6 (06:04→21:24)
[2017-02-20] MEDS: CLINDAMYCIN 900 MG/NS 50 ML IVPB IV SCH ×6 (06:04→21:24)
[2017-02-20] MEDS: CATHETER FLUSH 10 ML SYR IV SCH ×3 (06:05→21:25)
--- NOTE | 2017-02-20 06:27 | Progress Note-Standard ---
Standard Progress Note Progress Notes/Assess & Plan Date Seen by Provider: Feb 20, 2017 Time Seen by Provider: 06:30 Progress/Assessment & Plan ENT-Rao Patient see verónica evaluated in the ER GS-kjggwege-qnhmi 2 by 3cm abscess in superficial antreior parotid region fragments of the stones seen as well OP-mild to moderate trismus patient has pain and has had dilaudid and toradol. Procedure-Informed consent obtained-skin overlying the abscess aneswith LET 18 gauge needle uses to percutaneously aspirate the abscess-at least 6cc of mariusz pus removed arodibic and anaerobic cultures taken and sent to the lab-mild oozing noted with continued drainage would rec cefuroxime 1.5gm IV q 8 hours and cleocin 900mg tid will follow up in am ulitmately will need to be reevaluataed at with probable need to remove thegland once current infection has cleared. james ladjust antibiotics once cx and sens back Appreciate Dr Sadler taking care of the patient ENTMarco-02/20-630 clinically doing better this am-still swollen less trismus-minimal drainage from aspiration site Overall, would continue the IV antibiotic regimen as that and the aspiration appears to be working] will follow-up on wednesday am to check on patient and make sure we dont need to aspirate it again overall plan still as listed above ARAVIND POSADA MD Feb 20, 2017 6:27 am
[2017-02-20 07:20] LABS: ALANINE AMINOTRANSFERASE 30 U/L (0-55); ALBUMIN 3.5 GM/DL (3.2-4.5); ALKALINE PHOSPHATASE 78 U/L (40-136); BILIRUBIN,TOTAL 0.5 MG/DL (0.1-1.0); BUN/CREATININE RATIO 17; CALCIUM 8.8 MG/DL (8.5-10.1); CARBON DIOXIDE 23 MMOL/L (21-32); CHLORIDE 107 MMOL/L (98-107); CREATININE SERUM 0.71 MG/DL (0.60-1.30); GFR ESTIMATED > 60; GLUCOSE 104 MG/DL (70-105); POTASSIUM 4.3 MMOL/L (3.6-5.0); SODIUM 139 MMOL/L (135-145); TOTAL PROTEIN 6.2 GM/DL (6.4-8.2)
[2017-02-20] MEDS ORDERED: INFLUENZA TRIvalent 2017-2018 0.5 ML/45 MCG SYR IM ONE (07:30)
--- NOTE | 2017-02-20 08:47 | History & Physical-Hospitalist ---
HPI History of Present Illness: HPI/Chief Complaint Pt is a 41yoCF with a pmh of parotid gland stone s/p sialendescopy on 02/02 at [facility]. She noticed that her swelling was not improving on 02/09 and called [facility] and was started on abx. This still did not help with her swelling and she was put on another dose of abx (Clindamycin) on 02/17 along with a prednisone burst. She developed fevers yesterday and pain worsened prompting her to seek evaluation in the ER. CT revealed a 3x2cm abscess near the parotid. She underwent percutaneous drainage with Dr Yeh in the ER yesterday and was started on IV abx and admitted for further management. Source: patient Date Seen 02/20/17 Time Seen by Provider: 08:35 Attending Physician Slava Sadler MD PCP Giuliana Villanueva MD Referring Physician Date of Admission Feb 19, 2017 at 17:46 Home Medications & Allergies Home Medications Reviewed patient Home Medication Reconciliation Form Allergies Allergies Coded Allergies sumatriptan (Unverified Allergy, Mild, 08/04/12) Past Etoqlzn-Bwwmuy-Vsowoa Hx Patient Social History Alcohol Use: Denies Use Recreational Drug Use: No Smoking Status: Never a Smoker Physical Abuse Screen: No Sexual Abuse: No Recent Foreign Travel: No Contact w/other who traveled: No Recent Hopitalizations: No Recent Infectious Disease Expo: No Surgeries Yes (parotid gland surgery) Gallbladder, 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 Respiratory No Cardiovascular Yes High Cholesterol Neurological Yes (migraines) Reproductive System : No OFFICE RN History: 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 Genitourinary No Gastrointestinal Yes C-Diff Musculoskeletal No Endocrine History of Endocrine Disorders: No HEENT History of HEENT Disorders: Yes (parotid duct stone) Cancer No Psychosocial History of Psychiatric Problem: Yes Behavioral Health Disorders: Depression Integumentary History of Skin or Integumenta: No Blood Transfusions History of Blood Disorders: No Reviewed Nursing Assessment Reviewed/Agree w Nursing PMH: Yes Family Medical History Significant Family History: No Pertinent Family Hx Review of Systems Constitutional: fever EENTM: see HPI, No blurred vision, No double vision, No throat swelling Respiratory: No cough, No dyspnea on exertion, No short of breath Cardiovascular: No chest pain, edema, No palpitations Gastrointestinal: No abdominal pain, No constipation, No diarrhea, No nausea, No vomiting Genitourinary: No dysuria, No frequency Musculoskeletal: No joint pain, No muscle pain Psychiatric/Neurological: Denies Headache, Denies Numbness, Denies Tingling Physical Exam Physical Exam Vital Signs Vital Sign - Last 12Hours 02/19/17 13:54 Temp 100.1 Pulse 82 Resp 18 B/P (MAP) 167/110 (129) Pulse Ox 98 O2 Delivery Room Air Capillary Refill : Less Than 3 Seconds General Appearance: No Apparent Distress, WD/WN HEENT: No Scleral Icterus (L), No Scleral Icterus (R), Other (erythematous edema- tender to touch over left parotid) Respiratory: Lungs Clear, No Respiratory Distress Cardiovascular: Regular Rate, Rhythm, No Murmur Gastrointestinal: Normal Bowel Sounds, Non Tender, Soft Extremity: Normal Capillary Refill, No Calf Tenderness Neurologic/Psychiatric: Alert, Oriented x3, Normal Mood/Affect Skin: Normal Color, Warm/Dry Results Results/Procedures Lab Laboratory Tests 02/19/17 14:20 02/20/17 06:[address] IMPRESSION: 1. Parotid duct stone has been manipulated since previous CT scan, has been pushed posteriorly into the superficial parotid gland. There is an associated 3 x 2 cm fluid collection with enhancing wall, consistent with abscess. Assessment/Plan Admission Diagnosis Parotid Abscess Diagnosis/Problems Diagnosis/Problems (1) Abscess of parotid gland Status: Acute Assessment & Plan: Does not meet sepsis criteria s/p drainage by Dr Yeh 02/19 Continue on Clindamycin and Cefuroxime Culture growing beta hemolytic strep (2) Calculus of parotid gland Status: Acute Assessment & Plan: ENT consulted appreciate recs Will need to follow up with [facility] for likely parotid gland removal (3) Elevated blood pressure reading Assessment & Plan: Likely due to uncontrolled pain Trend Clinical Quality Measures DVT/VTE Risk/Contraindication: Risk Factor Score Per Nursin RFS Level Per Nursing on Admit: 4+=Very High SLAVA SADLER MD Feb 20, 2017 08:47
[2017-02-20] MEDS: oxyCODONE/APAP 10/325MG (PERCOCET 10) TABLET PO PRN ×2 (08:56→14:36)
[2017-02-20] MEDS ORDERED: ACHD5005 PO (09:01)
[2017-02-20] MEDS ORDERED: CLIN300C11 PO (09:01)
[2017-02-20 09:06] LABS: BASOPHILS % (AUTO) 0 % (0-10); EOSINOPHILS # (AUTO) 0.2 10^3/uL (0.0-0.3); EOSINOPHILS % (AUTO) 2 % (0-10); HEMATOCRIT 35 % (35-52); HEMOGLOBIN 12.7 G/DL (11.5-16.0); LYMPHOCYTES # (AUTO) 2.5 X 10^3 (1.0-4.0); LYMPHOCYTES % (AUTO) 32 % (12-44); MEAN CORPUSCULAR HEMOGLOBIN 30 PG (25-34); MEAN CORPUSCULAR HGB CONC 36 G/DL (32-36); MEAN CORPUSCULAR VOLUME 84 FL (80-99); MEAN PLATELET VOLUME 9.6 FL (7.4-10.4); MONOCYTES # (AUTO) 0.7 X 10^3 (0.0-1.0); MONOCYTES % (AUTO) 9 % (0-12); NEUTROPHILS # (AUTO) 4.5 X 10^3 (1.8-7.8); NEUTROPHILS % (AUTO) 57 % (42-75); PLATELET COUNT 263 10^3/uL (130-400); RED BLOOD COUNT 4.22 10^6/uL (4.35-5.85); RED CELL DISTRIBUTION WIDTH 13.4 % (10.0-14.5); WHITE BLOOD COUNT 7.9 10^3/uL (4.3-11.0)
[2017-02-20] MEDS: LACTOBACILLUS Acidoph/Bulgar (LACTINEX/FLORANEX) TAB PO SCH ×2 (11:03→15:01)
[2017-02-21 00:52] VITALS: BP 127/76
[2017-02-21] MEDS: fentaNYL INJECTION 100 MCG/2 ML AMP IV PRN ×3 (02:37→12:43)
[2017-02-21 03:23] VITALS: BP 124/73
[2017-02-21] MEDS: LACTOBACILLUS Acidoph/Bulgar (LACTINEX/FLORANEX) TAB PO SCH ×3 (05:55→16:38)
[2017-02-21] MEDS: CLINDAMYCIN 900 MG/NS 50 ML IVPB IV SCH ×6 (05:55→21:46)
[2017-02-21] MEDS: CEFUROXIME 1.5 GM/NS 50 ML IVPB IV SCH ×6 (05:55→21:46)
[2017-02-21] MEDS: CATHETER FLUSH 10 ML SYR IV SCH ×3 (05:55→21:54)
--- NOTE | 2017-02-21 06:53 | Progress Note-Standard ---
Standard Progress Note Progress Notes/Assess & Plan Date Seen by Provider: Feb 21, 2017 Time Seen by Provider: 06:30 Progress/Assessment & Plan ENT-Rao Patient see verónica evaluated in the ER MP-kmdciunr-dumsf 2 by 3cm abscess in superficial antreior parotid region fragments of the stones seen as well OP-mild to moderate trismus patient has pain and has had dilaudid and toradol. Procedure-Informed consent obtained-skin overlying the abscess aneswith LET 18 gauge needle uses to percutaneously aspirate the abscess-at least 6cc of mariusz pus removed arodibic and anaerobic cultures taken and sent to the lab-mild oozing noted with continued drainage would rec cefuroxime 1.5gm IV q 8 hours and cleocin 900mg tid will follow up in am ulitmately will need to be reevaluataed at with probable need to remove thegland once current infection has cleared. james ladjust antibiotics once cx and sens back Appreciate Dr Sadler taking care of the patient Selin- clinically doing better this am-still swollen less trismus-minimal drainage from aspiration site Overall, would continue the IV antibiotic regimen as that and the aspiration appears to be working] will follow-up on wednesday am to check on patient and make sure we dont need to aspirate it again overall plan still as listed above Selin- patient doing better less pain overall minimal trismus now still swollen but getting better-onthing else to drain at this point would conitnue the antibitoics-they are working-awaiting the culture results- hopefully something back in am wbc-back down to the mid normal range overall-doing much better than wednesday PM-I will talk with GARRY on Wednesday and see when we can get her in for an outpatient apt definitely needs at least another day of IV antibiotics if not more-will decide once culture results are back Final Diagnosis Left Parotid abscess ARAVIND POSADA MD Feb 21, 2017 6:53 am
[2017-02-21 07:03] LABS: BASOPHILS % (AUTO) 0 % (0-10); EOSINOPHILS # (AUTO) 0.1 10^3/uL (0.0-0.3); EOSINOPHILS % (AUTO) 2 % (0-10); HEMATOCRIT 38 % (35-52); HEMOGLOBIN 12.7 G/DL (11.5-16.0); LYMPHOCYTES # (AUTO) 2.8 X 10^3 (1.0-4.0); LYMPHOCYTES % (AUTO) 39 % (12-44); MEAN CORPUSCULAR HEMOGLOBIN 30 PG (25-34); MEAN CORPUSCULAR HGB CONC 33 G/DL (32-36); MEAN CORPUSCULAR VOLUME 90 FL (80-99); MEAN PLATELET VOLUME 10.2 FL (7.4-10.4); MONOCYTES # (AUTO) 0.6 X 10^3 (0.0-1.0); MONOCYTES % (AUTO) 9 % (0-12); NEUTROPHILS # (AUTO) 3.6 X 10^3 (1.8-7.8); NEUTROPHILS % (AUTO) 50 % (42-75); PLATELET COUNT 243 10^3/uL (130-400); RED BLOOD COUNT 4.25 10^6/uL (4.35-5.85); RED CELL DISTRIBUTION WIDTH 13.5 % (10.0-14.5); WHITE BLOOD COUNT 7.2 10^3/uL (4.3-11.0)
[2017-02-21 07:26] LABS: BUN/CREATININE RATIO 15; CALCIUM 8.9 MG/DL (8.5-10.1); CARBON DIOXIDE 22 MMOL/L (21-32); CHLORIDE 108 MMOL/L (98-107); CREATININE SERUM 0.72 MG/DL (0.60-1.30); GFR ESTIMATED > 60; GLUCOSE 108 MG/DL (70-105); POTASSIUM 4.1 MMOL/L (3.6-5.0); SODIUM 140 MMOL/L (135-145)
[2017-02-21] MEDS: oxyCODONE/APAP 10/325MG (PERCOCET 10) TABLET PO PRN ×3 (08:18→21:45)
[2017-02-21 08:41] VITALS: BP 132/74
[2017-02-21] MEDS ORDERED: ANTACID SUSP 30 ML UDC (MYLANTA) PO PRN (10:30)
[2017-02-21] MEDS ORDERED: BISACODYL 10 MG SUPP (DULCOLAX) PR PRN (10:30)
[2017-02-21] MEDS ORDERED: POLYETHYLENE GLYCOL 17 GM (MIRALAX) PACK PO PRN (10:30)
[2017-02-21] MEDS ORDERED: MILK OF MAGNESIA 400 MG/5 ML 30 ML UDC PO PRN (10:30)
--- NOTE | 2017-02-21 10:32 | Progress Note-Hospitalist ---
Subjective HPI/CC On Admission Date Seen by Provider: Feb 21, 2017 Time Seen by Provider: 10:05 Pt is a 41yoCF with a pmh of parotid gland stone s/p sialendescopy on 02/02 at [facility]. She noticed that her swelling was not improving on 02/09 and called [facility] and was started on abx. This still did not help with her swelling and she was put on another dose of abx (Clindamycin) on 02/17 along with a prednisone burst. She developed fevers yesterday and pain worsened prompting her to seek evaluation in the ER. CT revealed a 3x2cm abscess near the parotid. She underwent percutaneous drainage with Dr Yeh in the ER yesterday and was started on IV abx and admitted for further management. Subjective/Events-last exam Pt reports feeling better. Starting to notice some drainage though. Objective Exam Vital Signs Vital Sign - Last 12Hours 02/19/17 02/20/17 13:54 11:34 Temp 100.1 Pulse 82 Resp 18 B/P (MAP) 167/110 (129) Pulse Ox 98 O2 Delivery Room Air FiO2 21 Capillary Refill : Less Than 3 Seconds General Appearance: No Apparent Distress, WD/WN HEENT: Other (improving abscess over left parotid with decreasing erythema) Neurologic/Psychiatric: Alert, Oriented x3, Normal Mood/Affect Results/Procedures Lab Laboratory Tests 02/21/17 06:40 02/21/17 06:50 Assessment/Plan Assessment and Plan Assess & Plan/Chief Complaint parotid abscess Diagnosis/Problems Diagnosis/Problems (1) Abscess of parotid gland Status: Acute Assessment & Plan: Does not meet sepsis criteria s/p drainage by Dr Yeh 02/19 Continue on Clindamycin and Cefuroxime Culture growing beta hemolytic strep and 2nd unidentified organism Dr Yeh to contact [facility] about further definitive surgical treatment tomorrow (2) Calculus of parotid gland Status: Acute Assessment & Plan: ENT consulted appreciate recs Will need to follow up with [facility] for likely parotid gland removal (3) Elevated blood pressure reading Assessment & Plan: Improved but remains in prehypertension range Trend SLAVA SUNG MD Feb 21, 2017 10:32
[2017-02-21] MEDS: ENOXAPARIN 40 MG/0.4 ML (LOVENOX) SYR SC SCH (11:02)
[2017-02-21 12:00] VITALS: BP 127/76
[2017-02-21 16:59] VITALS: BP 118/57
[2017-02-22] VITALS: BP 135/74
[2017-02-22] MEDS: fentaNYL INJECTION 100 MCG/2 ML AMP IV PRN ×4 (02:38→19:30)
[2017-02-22 04:00] VITALS: BP 117/59
[2017-02-22] MEDS: CLINDAMYCIN 900 MG/NS 50 ML IVPB IV SCH ×6 (05:44→21:33)
[2017-02-22] MEDS: LACTOBACILLUS Acidoph/Bulgar (LACTINEX/FLORANEX) TAB PO SCH ×3 (05:44→16:09)
[2017-02-22] MEDS: CEFUROXIME 1.5 GM/NS 50 ML IVPB IV SCH ×6 (05:44→21:34)
[2017-02-22] MEDS: CATHETER FLUSH 10 ML SYR IV SCH ×3 (05:48→21:33)
--- NOTE | 2017-02-22 06:34 | Progress Note-Standard ---
Standard Progress Note Progress Notes/Assess & Plan Date Seen by Provider: Feb 22, 2017 Time Seen by Provider: 06:30 Progress/Assessment & Plan Selin Patient see verónica evaluated in the ER [id number] 2 by 3cm abscess in superficial antreior parotid region fragments of the stones seen as well OP-mild to moderate trismus patient has pain and has had dilaudid and toradol. Procedure-Informed consent obtained-skin overlying the abscess aneswith LET 18 gauge needle uses to percutaneously aspirate the abscess-at least 6cc of mariusz pus removed arodibic and anaerobic cultures taken and sent to the lab-mild oozing noted with continued drainage would rec cefuroxime 1.5gm IV q 8 hours and cleocin 900mg tid will follow up in am ulitmately will need to be reevaluataed at with probable need to remove thegland once current infection has cleared. james ladjust antibiotics once cx and sens back Appreciate Dr Sadler taking care of the patient AURAMarco- clinically doing better this am-still swollen less trismus-minimal drainage from aspiration site Overall, would continue the IV antibiotic regimen as that and the aspiration appears to be working] will follow-up on wednesday am to check on patient and make sure we dont need to aspirate it again overall plan still as listed above Selin- patient doing better less pain overall minimal trismus now still swollen but getting better-onthing else to drain at this point would conitnue the antibitoics-they are working-awaiting the culture results- hopefully something back in am wbc-back down to the mid normal range overall-doing much better than wednesday PM-I will talk with GARRY on Wednesday and see when we can get her in for an outpatient apt definitely needs at least another day of IV antibiotics if not more-will decide once culture results are back Selin slow continued improvement face-area of swelling nbsf-[id number]-ybbvtht to drain at this point but coudl still dvelop more pus getiing to hte piont she would be ok with outpt IV antibiotics will talk to GARRY this am to see when we can get her in to be seen up there -to evalute for definitive t x. once cultures back will then talk with pharm about home antibiotic and then make arrangemetns for IV antibiotics as oupt thru [facility] may need a midline IV as she will need 10 days of out pat antibiotics at a minimum will be back in contact with her/nurse once we talk with ARAVIND SCHMITZ MD Feb 22, 2017 6:34 am
[2017-02-22 08:00] VITALS: BP 119/67
[2017-02-22] MEDS: ENOXAPARIN 40 MG/0.4 ML (LOVENOX) SYR SC SCH (11:10)
--- NOTE | 2017-02-22 13:03 | Progress Note-Hospitalist ---
Subjective HPI/CC On Admission Date Seen by Provider: Feb 22, 2017 Time Seen by Provider: 11:00 Pt is a 41yoCF with a pmh of parotid gland stone s/p sialendescopy on 02/02 at [facility]. She noticed that her swelling was not improving on 02/09 and called [facility] and was started on abx. This still did not help with her swelling and she was put on another dose of abx (Clindamycin) on 02/17 along with a prednisone burst. She developed fevers yesterday and pain worsened prompting her to seek evaluation in the ER. CT revealed a 3x2cm abscess near the parotid. She underwent percutaneous drainage with Dr Yeh in the ER yesterday and was started on IV abx and admitted for further management. Subjective/Events-last exam Pt reports doing better today. Cheek feels better. requests IV abx to be set up at [place] as she works there. Objective Exam Vital Signs Vital Sign - Last 12Hours 02/19/17 02/20/17 13:54 11:34 Temp 100.1 Pulse 82 Resp 18 B/P (MAP) 167/110 (129) Pulse Ox 98 O2 Delivery Room Air FiO2 21 Capillary Refill : Less Than 3 Seconds General Appearance: No Apparent Distress, WD/WN Neck: Other (lessening edema and erythema on left cheek) Respiratory: Lungs Clear, No Respiratory Distress Cardiovascular: Regular Rate, Rhythm, No Murmur Gastrointestinal: Normal Bowel Sounds, Non Tender, Soft Neurologic/Psychiatric: Alert, Oriented x3, Normal Mood/Affect Assessment/Plan Assessment and Plan Assess & Plan/Chief Complaint parotid abscess Diagnosis/Problems Diagnosis/Problems (1) Abscess of parotid gland Status: Acute Assessment & Plan: Does not meet sepsis criteria s/p drainage by Dr Yeh 02/19 Continue on Clindamycin and Cefuroxime Day 4 Culture growing beta hemolytic strep and eikenella Will likely be need rocephin as outpatient but will await sensitivities Dr Yeh to contact [facility] about further definitive surgical treatment (2) Calculus of parotid gland Status: Acute Assessment & Plan: ENT consulted appreciate recs Will need to follow up with [facility] for likely parotid gland removal (3) Elevated blood pressure reading Assessment & Plan: Improved SLAVA SUNG MD Feb 22, 2017 1:03 pm
[2017-02-22] MEDS: oxyCODONE/APAP 10/325MG (PERCOCET 10) TABLET PO PRN ×2 (13:59→21:39)
[2017-02-22 15:32] VITALS: BP 121/69
[2017-02-23 00:16] VITALS: BP 127/64
[2017-02-23] MEDS: CLINDAMYCIN 900 MG/NS 50 ML IVPB IV SCH ×2 (06:27)
[2017-02-23] MEDS: LACTOBACILLUS Acidoph/Bulgar (LACTINEX/FLORANEX) TAB PO SCH ×2 (06:27→13:54)
[2017-02-23] MEDS: CEFUROXIME 1.5 GM/NS 50 ML IVPB IV SCH ×2 (06:27)
[2017-02-23] MEDS: CATHETER FLUSH 10 ML SYR IV SCH ×2 (06:28→13:50)
[2017-02-23] MEDS: oxyCODONE/APAP 10/325MG (PERCOCET 10) TABLET PO PRN ×2 (07:08→13:55)
[2017-02-23 08:00] VITALS: BP 118/58
[2017-02-23] MEDS ORDERED: ACID1TAB PO (09:11)
[2017-02-23] MEDS ORDERED: CLIN300C11 PO (09:11)
[2017-02-23] MEDS ORDERED: CEFT1VIA58 IJ (09:11)
[2017-02-23] MEDS ORDERED: ACHD5005 PO (09:18)
[2017-02-23] MEDS: ENOXAPARIN 40 MG/0.4 ML (LOVENOX) SYR SC SCH (09:47)
[2017-02-23] MEDS: fentaNYL INJECTION 100 MCG/2 ML AMP IV PRN (09:47)
--- NOTE | 2017-02-23 12:51 | Discharge Summary-Hospitalist ---
Diagnosis/Chief Complaint Date of Admission Feb 19, 2017 at 5:46 pm Date of Discharge Discharge Date: Feb 23, 2017 Admission Diagnosis Parotid Abscess Discharge Diagnosis parotid abscess (1) Abscess of parotid gland Status: Acute Assessment & Plan: Does not meet sepsis criteria s/p drainage by Dr Yeh 02/19 Received 5 days of Clindamycin and Cefuroxime here Culture growing strep anginous, prevotella, and eikenella Will set up for Rocephin as outpatient and continue oral Clindamycin Dr Yeh arranged [facility] follow up on 02/25 (2) Calculus of parotid gland Status: Acute Assessment & Plan: ENT consulted appreciate recs Will need to follow up with [facility] for likely parotid gland removal (3) Elevated blood pressure reading Status: Resolved Assessment & Plan: Improved, likely due to pain on admission Discharge Summary Consultations ENT- Dr Yeh Discharge Physical Examination Allergies: Coded Allergies: sumatriptan (Unverified Allergy, Mild, 08/04/12) Vitals & I&Os Vital Signs Date Time Temp Pulse Resp B/P (MAP) Pulse Ox O2 Delivery O2 Flow Rate FiO2 02/23/17 08:00 96.8 69 18 118/58 (78) 96 Room Air 02/20/17 11:34 21 Hospital Course Pt presented to the ER with left cheek swelling following sialendoscopy at [facility]. CT showed parotid abscess and she underwent percutaneous abscess on 02/[address] Yeh. She was admitted for IV abx and had improvement in her symptoms. She is to continue IV abx as an outpatient and follow up with [facility] on 02/25 for likely definitive surgical treatment. Labs (last 24 hrs) Microbiology 02/19/17 Blood Culture - Preliminary, Resulted No growth 02/19/17 Gram Stain - Final, Complete 02/19/17 Wound Culture - Final, Complete Strep Anginosus Eikenella Corrodens Prevotella Species Discharge Home Medications: Active Scripts Active Hydrocodone/Acetaminophen 5/325mg Tablet (Acetaminophen/Hydrocodone Bitart) 1 Tab Tab 1 Tab PO Q4H PRN Ceftriaxone (Ceftriaxone Sodium) 1 Gm Vial 1 Gm IJ DAILY 10 Days Floranex Tablet (L. Acidophilus/Bulgaricus) 1 Each Tablet 1 Tab.chew PO AC Clindamycin HCl 300 Mg Capsule 300 Mg PO Q6H FILLED 02/10/17 #40 FOR A 10 DAY THERAPY Instructions to patient/family Please see electronic discharge instructions given to patient. Clinical Quality Measures DVT/VTE Risk/Contraindication: Risk Factor Score Per Nursin RFS Level Per Nursing on Admit: 4+=Very High Copy Copies To 1: ARAVIND YEH MD; ANTONIO SIMENTAL MD, KATELYN M MD Feb 23, 2017 12:51 pm
[2017-02-23] MEDS ORDERED: cefTRIAXone INJECTION 1,000 MG in NS (IVPB) 50 ML IV ONE (13:15)
[2017-02-23 14:30] VITALS: BP 120/60
== END 2017-02-23 14:30 | disposition home or self-care (01) | DRG 156 ==
LOC: EDUNIT# 13:31 → ER 13:34 → 4TH 17:46
PROVIDERS: ADMIT Family Medicine; ATTEND Family Medicine
PROC: 0C9 Mouth and Throat, Drainage (ICD-10-PCS; principal; 2017-02-19)
DX: K11.8 Other diseases of salivary glands (principal); K11.5 Sialolithiasis; R03.0 Elevated blood-pressure reading, without diagnosis of hypertension; E78.00 Pure hypercholesterolemia, unspecified; F32.9 Major depressive disorder, single episode, unspecified; B95.5 Unspecified streptococcus as the cause of diseases classified elsewhere; B96.89 Other specified bacterial agents as the cause of diseases classified elsewhere
CPT/HCPCS: 36415; 70487; 76937; 80048; 80053; 83605; 85025; 85610; 85730; 86141; 87040; 87070; 87075; 87077; 87205; 94760; 96374; 96375

== ENCOUNTER → 2017-11-05 | Outpatient (CLI) | payer OTHER ==
[~2017-11-05] MED LIST changes: +ACHD5005 PO; +ACID1TAB PO; +CFTR1V IJ; +CLIN300C11 PO; +GABA-488 PO; +HYDR-3870 PO; +NITR-65 PO; +TAMS0.4C98 PO; +VENL75CA PO
--- NOTE | 2017-11-05 16:57 | Diagnostic Imaging Report ---
PROCEDURE: CT urinary tract, rule out kidney stone. TECHNIQUE: Multiple contiguous axial images were obtained through the abdomen and pelvis without the use of intravenous contrast. INDICATION: Right flank pain. COMPARISON: None. FINDINGS: The lung bases are clear. The heart is normal in size. There is no pericardial effusion. There is fatty infiltration of the liver. No focal hepatic lesions are seen. Cholecystectomy clips are noted. The spleen is normal. The pancreas is normal. The adrenal glands are normal. There is no right hydronephrosis. The right kidney demonstrates a nonobstructing 5 mm calculus, and a small 2 cm cyst. No renal calculi are seen in the left kidney, and there is no hydronephrosis. There is a large 6.5 cm cyst in the posterior left kidney. No retroperitoneal adenopathy is seen. There is trace calcific atherosclerosis of the aorta, somewhat greater than expected for age. The bowel loops are nondistended without evidence of obstruction. The appendix is normal. No free fluid or free air is seen in the abdomen. No acute osseous abnormality is seen. There is a sclerotic focus at the S2 vertebral body, and at the left pubic body, thought to represent bone islands. IMPRESSION: 1. Nonobstructing calculus in the right kidney. No obstructing calculi or hydronephrosis. 2. Bilateral renal cysts, the largest measuring 6.5 cm on the left kidney. 3. Hepatic steatosis. Dictated by: Dictated on workstation # [id number]
== END ==
LOC: RAD 16:18
PROVIDERS: ATTEND Nurse Practitioner Family
DX: N20.0 Calculus of kidney (principal); N28.1 Cyst of kidney, acquired; K76.0 Fatty (change of) liver, not elsewhere classified
CPT/HCPCS: 74176

== ENCOUNTER 2017-11-08 15:09 | Outpatient (CLI) | payer OTHER ==
[~2017-11-08] VITALS: Ht 175.3 cm; Wt 121.6 kg
[~2017-11-08 15:09] MED LIST changes: -GABA-488 PO; -HYDR-3870 PO; -NITR-65 PO; -TAMS0.4C98 PO; -VENL75CA PO
[2017-11-08] MEDS ORDERED: VENL75CA PO (16:18)
[2017-11-08] MEDS ORDERED: GABA-488 PO (16:18)
[2017-11-09] MEDS ORDERED: TAMS0.4C98 PO (15:04)
[2017-11-09] MEDS ORDERED: NITR-65 PO (15:04)
[2017-11-09] MEDS ORDERED: HYDR-3870 PO (15:04)
== END 2017-11-08 16:26 | disposition home or self-care (01) ==
LOC: PREOP 15:09
PROVIDERS: ATTEND Urology
DX: Z01.818 Encounter for other preprocedural examination (principal)

== ENCOUNTER → 2017-11-08 | Outpatient (CLI) | payer OTHER ==
--- NOTE | 2017-11-08 12:42 | Diagnostic Imaging Report ---
INDICATION: Nephrolithiasis. Comparison is made with prior examination from 03/01/2012. FINDINGS: The bowel gas pattern is nonspecific. There are surgical clips in the right upper quadrant. There is questionable residual stone in the right kidney. IMPRESSION: Questionable right nephrolithiasis, otherwise nonspecific bowel gas pattern. Dictated by: Dictated on workstation # [id number]
== END ==
LOC: RAD 12:14
PROVIDERS: ATTEND Urology
DX: N20.0 Calculus of kidney (principal); Z98.890 Other specified postprocedural states
CPT/HCPCS: 74018

== ENCOUNTER 2017-11-09 09:49 | Day surgery (SDC) | payer OTHER ==
[~2017-11-09] VITALS: Ht 175.3 cm; Wt 121.6 kg
[~2017-11-09 09:49] MED LIST changes: +GABA-488 PO; +VENL75CA PO
--- OUTSIDE RECORDS SUMMARY | 2017-11-09 09:52 | XMS REPORT | Continuity of Care Document ---
Author Author [facility] Organization [facility] Address Unknown Phone Unavailable Care Team Providers Care Tray Drier Operator Name Role Phone ANTONIO SIMENTAL MD PP Insurance Providers Payer Name Policy Number Subscriber Name Relationship [facility] [id number] Jennifer Rivas 01 Self / Same As Patient Advance Directives Directive Response Recorded Date Advance Directives N 08/10/12 11:30am Health Care Power of Senior C Software Developer N 08/04/12 8:42am Organ Donor N 08/04/12 8:42am Problems No Known Problems or Medical conditions. Social History History Response Recorded Date/Time Recreational Drug Use N 08/10/12 3:50pm Allergies, Adverse Reactions, Alerts Allergen Type Severity Reaction Last Updated sumatriptan Allergy Mild 08/04/12 Medications Medication Dose Units Route Sig Qty Days Ibuprofen (Motrin) 800 Mg PO Q6H PRN Estradiol 2 PO DAILY Docusate Sodium (Colace) 100 Mg PO BID Acetaminophen/Hydrocodone Bitart (Lorcet Plus 10/325 Mg) 1 - 2 PO Every 3 Hours PRN Ibuprofen (Motrin) 600 Mg PO Q6H PRN Response Recorded Date/Time Status not known Unknown Results Test Date Result Interp. Ref. Range Basophils # (Auto) August 04, 2012 8:55am 0.0 10^3/uL N 0.0-0.1 Basophils (%) (Auto) August 04, 2012 8:55am 0 % N 0-10 Eosinophils # (Auto) August 04, 2012 8:55am 0.0 10^3/uL N 0.0-0.3 Eosinophils (%) (Auto) August 04, 2012 8:55am 0 % N 0-10 Hematocrit August 04, 2012 8:55am 42 % N 35-52 Hemoglobin August 04, 2012 8:55am 14.8 G/ DL N 11.5-16.0 Lymphocytes # (Auto) August 04, 2012 8:55am 2.5 X 10^3 N 1.0-4.0 Lymphocytes (%) (Auto) August 04, 2012 8:55am 27 % N 12-44 Mean Corpuscular Hemoglobin August 04, 2012 8:55am 31 PG N 25-34 Mean Corpuscular Hemoglobin Concent August 04, 2012 8:55am 35 G/DL N 32-36 Mean Corpuscular Volume August 04, 2012 8:55am 89 FL N 80-99 Mean Platelet Volume August 04, 2012 8:55am 10.3 FL N 7.4-10.4 Monocytes # (Auto) August 04, 2012 8:55am 0.5 X 10^3 N 0.0-1.0 Monocytes (%) (Auto) August 04, 2012 8:55am 6 % N 0-12 Neutrophils # (Auto) August 04, 2012 8:55am 6.0 X 10^3 N 1.8-7.8 Neutrophils (%) (Auto) August 04, 2012 8:55am 66 % N 42-75 Platelet Count August 04, 2012 8:55am 263 10^3/uL N 130-400 Red Blood Count August 04, 2012 8:55am 4.78 10^6/uL N 4.35-5.85 Red Cell Distribution Width August 04, 2012 8:55am 12.4 % N 10.0-14.5 White Blood Count August 04, 2012 8:55am 9.0 10^3/uL N 4.3-11.0 Procedures Procedure Code Date MRSA Screen 08/04/12 Encounters Encounter Location Date/Time Departed Emergency Room [facility] 12 :00am
--- OUTSIDE RECORDS SUMMARY | 2017-11-09 09:53 | XMS REPORT | Continuity of Care Document ---
Author Author [facility] Organization [facility] Address Unknown Phone Unavailable Allergies Active Description Code Type Severity Reaction Onset Reported/Identified Relationship to Patient Clinical Status Yes IMITREX IMITREX SEVERE Yes IMITREX UNKNOWN UNKNOWN Yes IMITREX SEVERE ANAPHYLACTIC SHOCK Yes sumatriptan [id number] Drug Allergy Mild N/A 11/08/2017 Medications Medication Packaging Start Date Stop Date Route Dosage Sig FENTANYL AMP INJ 100 MCG/2CC MCG 01/29/2016 ONCE&2022 OXYCODONE/APAP 10MG/325MG TAB 0 (PERCOCET-10) TAB 01/29/2016 01/29/2016 PRN ONCE KETOROLAC VIAL INJ 30 MG/CC (TORADOL VIAL) MG 10/15/2016 10/15/2016 ONCE&0606 ONDANSETRON VIAL INJ 4 MG/2CC (ZOFRAN 2CC VIAL) MG 10/15/2016 10/15/2016 ONCE&0607 DIPHENHYDRAMINE VIAL INJ 50 MG/CC (BENADRYL VIAL) MG 10/15/2016 10/15/2016 ONCE&0607 AMOX-CLAV 875/125 TAB 875 MG-125MG (AUGMENTIN) TAB 10/15/2016 10/15/2016 ONCE&0707 CEFTRIAXONE PREMIX IV BAG IV 1 GM/50CC (ROCEPHIN PREMIX IV BAG) GM 02/24/2017 02/24/2017 ONCE&1824 CEFTRIAXONE INJ 1 GM (ROCEPHIN) GM 02/25/2017 02/25/2017 ONCE&0834 CEFTRIAXONE PREMIX IV BAG IV 1 GM/50CC (ROCEPHIN PREMIX IV BAG) GM 02/26/2017 02/26/2017 ONCE&0947 CEFTRIAXONE PREMIX IV BAG IV 1 GM/50CC (ROCEPHIN PREMIX IV BAG) GM 02/27/2017 02/27/2017 ONCE&1216 CEFTRIAXONE PREMIX IV BAG IV 1 GM/50CC (ROCEPHIN PREMIX IV BAG) GM 02/28/2017 02/28/2017 ONCE&1051 Heparin, FLUSH IV syringe 500 units UNITS 03/01/2017 03/01/2017 ONCE&0800 CEFTRIAXONE PREMIX IV BAG IV 1 GM/50CC (ROCEPHIN PREMIX IV BAG) GM 03/01/2017 03/01/2017 ONCE&0800 CEFTRIAXONE INJ 1 GM (ROCEPHIN) GM 03/02/2017 03/02/2017 ONCE&0713 CEFTRIAXONE PREMIX IV BAG IV 1 GM/50CC (ROCEPHIN PREMIX IV BAG) GM 03/03/2017 03/03/2017 ONCE&0654 CEFTRIAXONE PREMIX IV BAG IV 1 GM/50CC (ROCEPHIN PREMIX IV BAG) GM 03/04/2017 03/04/2017 ONCE&0827 NORMAL SALINE 50CC IV BAG INJ (NS 50CC MINI-BAG) ml 03/05/2017 03/05/2017 ONCE&0546 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 08/11/2012 YAW RAMSAY MD, Ot 617.0 UTERINE ENDOMETRIOSIS 08/11/2012 YAW RAMSAY MD, Ot 617.1 OVARIAN ENDOMETRIOSIS 08/11/2012 YAW RAMSAY MD Ot 617.3 PELV PERIT ENDOMETRIOSIS 08/11/2012 YAW RAMSAY MD Ot 620.1 CORPUS LUTEUM CYST 08/11/2012 YAW RAMSAY MD Ot 625.6 FEM STRESS INCONTINENCE 08/11/2012 YAW RAMSAY MD Ot 626.8 MENSTRUAL DISORDER NEC 01/29/2016 Sera Naranjo 785.6 ENLARGEMENT OF LYMPH NODES 01/29/2016 Sera Naranjo R59.9 ENLARGED LYMPH NODES, UNSPECIFIED 03/12/2016 ANTONIO SIMENTAL 683 ACUTE LYMPHADENITIS 03/12/2016 ANTONIO SIMENTAL L04.0 ACUTE LYMPHADENITIS OF FACE, HEAD AND NECK 10/15/2016 KARAN ZHENG 346.90 MIGRAINE, UNSPECIFIED, WITHOUT MENTION OF INTRACTABLE MIGRAINE, WITHOUT MENTION OF STATUS MIGRAINOSUS 10/15/2016 KARAN ZHENG W 785.6 ENLARGEMENT OF LYMPH NODES 10/15/2016 KARAN ZHENG A G43.909 MIGRAINE, UNSP, NOT INTRACTABLE, WITHOUT STATUS MIGRAINOSUS 10/15/2016 KARAN ZHENG W R59.0 LOCALIZED ENLARGED LYMPH NODES 11/18/2016 Ot 592.0 CALCULUS OF KIDNEY 11/18/2016 YAW RAMSAY MD Ot 285.9 ANEMIA NOS 11/18/2016 YAW RAMSAY MD Ot 617.9 ENDOMETRIOSIS NOS 11/18/2016 YAW RAMSAY MD, Ot V72.63 PRE-PROCEDURAL LABORATORY EXAMINATION 11/18/2016 YAW RAMSAY MD, Ot V74.8 SCREEN-BACTERIAL DIS NEC 11/18/2016 JORDANA SMITH MD, Ot F32.9 MAJOR DEPRESSIVE DISORDER, SINGLE EPISOD 11/18/2016 JORDANA SMITH MD Ot K11.20 SIALOADENITIS, UNSPECIFIED 11/18/2016 JORDANA SMITH MD Ot R22.0 LOCALIZED SWELLING, MASS AND LUMP, HEAD 11/18/2016 JORDANA SMITH MD Ot Z87.19 PERSONAL HISTORY OF OTHER DISEASES OF TH 11/18/2016 JORDANA SMITH MD Ot Z90.710 ACQUIRED ABSENCE OF BOTH CERVIX AND UTER 11/18/2016 Ot 592.0 CALCULUS OF KIDNEY 11/18/2016 YAW RAMSAY MD Ot 285.9 ANEMIA NOS 11/18/2016 YAW RAMSAY MD Ot 617.9 ENDOMETRIOSIS NOS 11/18/2016 YAW RAMSAY MD, Ot V72.63 PRE-PROCEDURAL LABORATORY EXAMINATION 11/18/2016 YAW RAMSAY MD, Ot V74.8 SCREEN-BACTERIAL DIS NEC 11/20/2016 JORDANA SMITH MD, Ot F32.9 MAJOR DEPRESSIVE DISORDER, SINGLE EPISOD 11/20/2016 JORDANA SMITH MD Ot K11.20 SIALOADENITIS, UNSPECIFIED 11/20/2016 JORDANA SMITH MD Ot R22.0 LOCALIZED SWELLING, MASS AND LUMP, HEAD 11/20/2016 JORDANA SMITH MD Ot Z87.19 PERSONAL HISTORY OF OTHER DISEASES OF TH 11/20/2016 SARAH HIGGINS, JORDANA Chen Ot Z90.710 ACQUIRED ABSENCE OF BOTH CERVIX AND UTER 02/19/2017 Ot 592.0 CALCULUS OF KIDNEY 02/19/2017 YAW RAMSAY MD Ot 285.9 ANEMIA NOS 02/19/2017 YAW RAMSAY MD Ot 617.9 ENDOMETRIOSIS NOS 02/19/2017 YAW RAMSAY MD Ot V72.63 PRE-PROCEDURAL LABORATORY EXAMINATION 02/19/2017 YAW RAMSAY MD Ot V74.8 SCREEN-BACTERIAL DIS NEC 02/23/2017 SLAVA SUNG MD Ot B95.5 UNSP STREPTOCOCCUS THE CAUSE OF DISEA 02/23/2017 SLAVA SUNG MD Ot B96.89 OTH BACTERIAL AGENTS THE CAUSE OF DIS 02/23/2017 SLAVA SUNG MD Ot E78.00 PURE HYPERCHOLESTEROLEMIA, UNSPECIFIED 02/23/2017 SLAVA SUNG MD Ot F32.9 MAJOR DEPRESSIVE DISORDER, SINGLE EPISOD 02/23/2017 SLAVA SUNG MD Ot K11.5 SIALOLITHIASIS 02/23/2017 SLAVA SUNG MD Ot K11.8 OTHER DISEASES OF SALIVARY GLANDS 02/23/2017 SLAVA SUNG MD Ot R03.0 ELEVATED BLOOD-PRESSURE READING, W/O MARV 02/23/2017 SLAVA SUNG MD Ot B95.5 UNSP STREPTOCOCCUS THE CAUSE OF DISEA 02/23/2017 SLAVA SUNG MD Ot B96.89 OTH BACTERIAL AGENTS THE CAUSE OF DIS 02/23/2017 SLAVA SUNG MD Ot E78.00 PURE HYPERCHOLESTEROLEMIA, UNSPECIFIED 02/23/2017 SLAVA SUNG MD Ot F32.9 MAJOR DEPRESSIVE DISORDER, SINGLE EPISOD 02/23/2017 SLAVA SUNG MD Ot K11.5 SIALOLITHIASIS 02/23/2017 SLAVA SUNG MD Ot K11.8 OTHER DISEASES OF SALIVARY GLANDS 02/23/2017 SLAVA SUNG MD Ot R03.0 ELEVATED BLOOD-PRESSURE READING, W/O MARV 02/24/2017 SIMENTAL, ANTONIO A 527.2 SIALOADENITIS 02/24/2017 SIMENTAL, ANTONIO W 527.5 SIALOLITHIASIS 02/24/2017 SIMENTAL, ANTONIO A K11.21 ACUTE SIALOADENITIS 02/24/2017 SIMENTAL, ANTONIO W K11.5 SIALOLITHIASIS 02/25/2017 SIMENTAL, ANTONIO A 527.2 SIALOADENITIS 02/25/2017 SIMENTAL, ANTONIO W 527.5 SIALOLITHIASIS 02/25/2017 SIMENTAL, ANTONIO A K11.21 ACUTE SIALOADENITIS 02/25/2017 SIMENTAL, ANTONIO W K11.5 SIALOLITHIASIS 02/26/2017 SIMENTAL, ANTONIO A 527.2 SIALOADENITIS 02/26/2017 SIMENTAL, ANTONIO W 527.5 SIALOLITHIASIS 02/26/2017 SIMENTAL, ANTONIO A K11.21 ACUTE SIALOADENITIS 02/26/2017 SIMENTAL, ANTONIO W K11.5 SIALOLITHIASIS 02/27/2017 SIMENTAL, ANTONIO A 527.2 SIALOADENITIS 02/27/2017 SIMENTAL, ANTONIO W 527.5 SIALOLITHIASIS 02/27/2017 SIMENTAL, ATNONIO A K11.21 ACUTE SIALOADENITIS 02/27/2017 SIMENTAL, ANTONIO W K11.5 SIALOLITHIASIS 02/28/2017 SIMENTAL, ANTONIO A 527.2 SIALOADENITIS 02/28/2017 SIMENTAL, ANTONIO W 527.5 SIALOLITHIASIS 02/28/2017 SIMENTAL, ANTONIO A K11.21 ACUTE SIALOADENITIS 02/28/2017 SIMENTAL, ANTONIO W K11.5 SIALOLITHIASIS 03/01/2017 SIMENTAL, ANTONIO A 527.2 SIALOADENITIS 03/01/2017 SIMENTAL, ANTONIO A K11.21 ACUTE SIALOADENITIS 03/02/2017 SIMENTAL, ANTONIO A 527.2 SIALOADENITIS 03/02/2017 SIMENTAL, ANTONIO W 527.5 SIALOLITHIASIS 03/02/2017 SIMENTAL, ANTONIO A K11.21 ACUTE SIALOADENITIS 03/02/2017 SIMENTAL, ANTONIO W K11.5 SIALOLITHIASIS 03/03/2017 SIMENTAL, ANTONIO A 527.2 SIALOADENITIS 03/03/2017 SIMENTAL, ANTONIO W 527.5 SIALOLITHIASIS 03/03/2017 SIMENTAL, ANTONIO A K11.21 ACUTE SIALOADENITIS 03/03/2017 SIMENTAL, ANTONIO W K11.5 SIALOLITHIASIS 03/04/2017 SIMENTAL, ANTONIO A 527.2 SIALOADENITIS 03/04/2017 SIMENTAL, ANTONIO W 527.5 SIALOLITHIASIS 03/04/2017 SIMENTAL, ANTONIO A K11.21 ACUTE SIALOADENITIS 03/04/2017 SIMENTAL, ANTONIO W K11.5 SIALOLITHIASIS 03/05/2017 SIMENTAL, ANTONIO A 527.2 SIALOADENITIS 03/05/2017 SIMENTAL, ANTONIO W 527.5 SIALOLITHIASIS 03/05/2017 SIMENTAL, ANTONIO A K11.21 ACUTE SIALOADENITIS 03/05/2017 SIMENTAL, ANTONIO W K11.5 SIALOLITHIASIS 10/20/2017 SIMENTAL, ANTONIO A 796.2 ELEVATED BLOOD PRESSURE READING WITHOUT DIAGNOSIS OF HYPERTENSION 10/20/2017 HOLA ANTONIO A R03.0 ELEVATED BLOOD-PRESSURE READING, WITHOUT DIAGNOSIS OF HYPERTENSION 10/20/2017 SIMENTAL, ANTONIO A 796.2 ELEVATED BLOOD PRESSURE READING WITHOUT DIAGNOSIS OF HYPERTENSION 10/20/2017 SIMENTAL, ANTONIO A R03.0 ELEVATED BLOOD-PRESSURE READING, WITHOUT DIAGNOSIS OF HYPERTENSION 10/20/2017 ANTONIO SIMENTAL W V77.91 SCREENING FOR LIPOID DISORDERS 10/20/2017 ANTONIO SIMENTAL W Z13.220 ENCOUNTER FOR SCREENING FOR LIPOID DISORDERS 10/20/2017 SIMENTAL ANTONIO A 796.2 ELEVATED BLOOD PRESSURE READING WITHOUT DIAGNOSIS OF HYPERTENSION 10/20/2017 SIMENTAL, ANTONIO A R03.0 ELEVATED BLOOD-PRESSURE READING, WITHOUT DIAGNOSIS OF HYPERTENSION 10/20/2017 ANTONIO SIMENTAL W V77.91 SCREENING FOR LIPOID DISORDERS 10/20/2017 ANTONIO SIMENTAL W Z13.220 ENCOUNTER FOR SCREENING FOR LIPOID DISORDERS 10/20/2017 SIMENTAL, ANTONIO A 796.2 ELEVATED BLOOD PRESSURE READING WITHOUT DIAGNOSIS OF HYPERTENSION 10/20/2017 HOLA ANTONIO A R03.0 ELEVATED BLOOD-PRESSURE READING, WITHOUT DIAGNOSIS OF HYPERTENSION 10/20/2017 ANTONIO SIMENTAL W V77.91 SCREENING FOR LIPOID DISORDERS 10/20/2017 ANTONIO SIMENTAL Z13.220 ENCOUNTER FOR SCREENING FOR LIPOID DISORDERS 11/08/2017 JIMY LEVINE BIOMASS FACILITATOR Ot K76.0 FATTY (CHANGE OF) LIVER, NOT ELSEWHERE C 11/08/2017 JIMY LEVINE BIOMASS FACILITATOR Ot N20.0 CALCULUS OF KIDNEY 11/08/2017 JIMY LEVINE BIOMASS FACILITATOR Ot N28.1 CYST OF KIDNEY, ACQUIRED 11/08/2017 JIMY LEVINE BIOMASS FACILITATOR Ot K76.0 FATTY (CHANGE OF) LIVER, NOT ELSEWHERE C 11/08/2017 JIMY LEVINE BIOMASS FACILITATOR Ot N20.0 CALCULUS OF KIDNEY 11/08/2017 JIMY LEVINE BIOMASS FACILITATOR Ot N28.1 CYST OF KIDNEY, ACQUIRED 11/09/2017 CINDY FAUST MD Ot N20.0 CALCULUS OF KIDNEY 11/09/2017 CINDY FAUST MD Ot Z98.890 OTHER SPECIFIED POSTPROCEDURAL STATES Procedures Code Description Performed By Performed On [id number] DRAINAGE OF LEFT PAROTID GLAND, PERCUTAN 02/19/2017 Results Test Result Range Comprehensive Metabolic Panel - 01/29/16 20:23 Albumin 4.3 g/dL 3.6-5.1 ALP 89 U/L 35-130 ALT 28 U/L 6-45 Anion Gap 13 6-14 AST 19 U/L 2-40 BUN 13 mg/dL 5-25 Calcium 9.4 mg/dL 8.3-10.4 Chloride 110 mmol/L 95-114 CO2 24 mEq/L 22-33 Creat 0.80 mg/dL 0.50-1.50 eGFR 79 mL/min/1.73m2 >59 Globulin 2.6 g/dL 2.3-3.5 Glucose 142 mg/dL 70-110 Osmo 297 280-295 Potassium 3.9 mmol/L 3.5-5.3 Sodium 143 mmol/L 134-148 TBil 0.3 mg/dL 0.2-1.2 TP 6.9 g/dL 6.0-8.3 C.difficile, DNA Amplification - 02/12/16 10:40 C.difficile, DNA Amplification NEGATIVE: No DNA evidence of toxogenic C. difficile detected. Negative Lipid Panel - 10/09/16 09:00 C/HDL 5.2 3.7-6.7 Cholesterol 246 mg/dL 100-240 HDL 47 mg/dL 30-85 LDL-Calculated 167 mg/dL 0-100 Trig 162 mg/dL 35-160 VLDL 32 mg/dL 0-42 Comprehensive Metabolic Panel - 10/15/16 06:16 Albumin 4.0 g/dL 3.6-5.1 ALP 81 U/L 35-130 ALT 27 U/L 6-45 Anion Gap 14 6-14 AST 19 U/L 2-40 BUN 13 mg/dL 5-25 Calcium 9.3 mg/dL 8.3-10.4 Chloride 108 mmol/L 95-114 CO2 22 mEq/L 22-33 Creat 0.76 mg/dL 0.50-1.50 eGFR 83 mL/min/1.73m2 >59 Globulin 3.2 g/dL 2.3-3.5 Glucose 123 mg/dL 70-110 Osmo 290 280-295 Potassium 3.8 mmol/L 3.5-5.3 Sodium 140 mmol/L 134-148 TBil 0.5 mg/dL 0.2-1.2 TP 7.2 g/dL 6.0-8.3 Complete blood count (CBC) with automated white [...] protein measurement (mass/volume) 4.28 mg /dL 0.00-0.50 Other Culture - 11/17/17 14:59 PRELIM CULTURE RESULTS No Growth 24 hours FINAL CULTURE RESULTS No Growth 48 hours MEDIA PLATED Setup at 15:12 on 01/01/2017 Complete blood count (CBC) with automated white [...] protein measurement (mass/volume) 1.89 mg /dL 0.00-0.50 Bacterial blood culture - 02/19/17 14:20 Bacterial blood culture [facility] PT panel in platelet poor plasma by [...] poor plasma bycoagulation assay 26 s 24-35 Bacterial blood culture - 02/19/17 14:36 Bacterial blood culture [facility] Gram stain microscopy - 02/19/17 18:00 Gram stain microscopy Moderate # WBC's, few gram positive cocci in chains NRG Bacteria identification in wound by culture - 02/19/17 18:00 Bacteria identification in wound by culture [id number] [facility] FREE TEXT EXTERNAL (ANAEROBIC GNR) NRG QUANTITY OF GROWTH Abundant Growth NRG Bacteria identification in isolate by anaerobe culture - 02/19/17 18:00 QUANTITY OF GROWTH Moderate Growth NRG Bacteria identification in isolate by anaerobe culture [id number] [facility] Comprehensive metabolic panel - 02/20/17 06:26 Serum or plasma sodium measurement (moles/volume) 139 mmol/L 135-145 Serum or plasma potassium measurement (moles/volume) 4.3 mmol/L 3.6-5.0 Serum or plasma chloride measurement (moles/volume) 107 mmol/L 98-107 Carbon dioxide 23 mmol/L 21-32 Serum or plasma anion gap determination (moles/volume) 9 mmol/L 5-14 Serum or plasma urea nitrogen measurement (mass/volume) 12 mg/dL 7-18 Serum or plasma creatinine measurement (mass/volume) 0.71 mg/dL 0.60-1.30 Serum or plasma urea nitrogen/creatinine mass ratio 17 NRG Serum or plasma creatinine measurement with calculation of estimated glomerular filtration rate > NRG Serum or plasma glucose measurement (mass/volume) 104 mg/dL 70-105 Serum or plasma calcium measurement (mass/volume) 8.8 mg/dL 8.5-10.1 Serum or plasma total bilirubin measurement (mass/volume) 0.5 mg/dL 0.1-1.0 Serum or plasma alkaline phosphatase measurement (enzymatic activity/volume) 78 U/L 40-136 Serum or plasma aspartate aminotransferase measurement (enzymatic activity/ volume) 18 U/L 5-34 Serum or plasma alanine aminotransferase measurement (enzymatic activity/volume ) 30 U/L 0-55 Serum or plasma protein measurement (mass/volume) 6.2 g/dL 6.4-8.2 Serum or plasma albumin measurement (mass/volume) 3.5 g/dL 3.2-4.5 Complete blood count (CBC) with automated white blood cell (WBC) differential - 02/20/17 08:35 Blood leukocytes automated count (number/volume) 7.9 10*3/uL 4.3-11.0 Blood erythrocytes automated count (number/volume) 4.22 10*6/uL 4.35-5.85 Venous blood hemoglobin measurement (mass/volume) 12.7 g/dL 11.5-16.0 Blood hematocrit (volume fraction) 35 % 35-52 Automated erythrocyte mean corpuscular volume 84 [foz_us] 80-99 Automated erythrocyte mean corpuscular hemoglobin (mass per erythrocyte) 30 pg 25-34 Automated erythrocyte mean corpuscular hemoglobin concentration measurement ( mass/volume) 36 g/dL 32-36 Automated erythrocyte distribution width ratio 13.4 % 10.0-14.5 Automated blood platelet count (count/volume) 263 10*3/uL 130-400 Automated blood platelet mean volume measurement 9.6 [foz_us] 7.4-10.4 Automated blood neutrophils/100 leukocytes 57 % 42-75 Automated blood lymphocytes/100 leukocytes 32 % 12-44 Blood monocytes/100 leukocytes 9 % 0-12 Automated blood eosinophils/100 leukocytes 2 % 0-10 Automated blood basophils/100 leukocytes 0 % 0-10 Blood neutrophils automated count (number/volume) 4.5 10*3 1.8-7.8 Blood lymphocytes automated count (number/volume) 2.5 10*3 1.0-4.0 Blood monocytes automated count (number/volume) 0.7 10*3 0.0-1.0 Automated eosinophil count 0.2 10*3/uL 0.0-0.3 Automated blood basophil count (count/volume) 0.0 10*3/uL 0.0-0.1 Complete blood count (CBC) with automated white blood cell (WBC) differential - 02/21/17 06:40 Blood leukocytes automated count (number/volume) 7.2 10*3/uL 4.3-11.0 Blood erythrocytes automated count (number/volume) 4.25 10*6/uL 4.35-5.85 Venous blood hemoglobin measurement (mass/volume) 12.7 g/dL 11.5-16.0 Blood hematocrit (volume fraction) 38 % 35-52 Automated erythrocyte mean corpuscular volume 90 [foz_us] 80-99 Automated erythrocyte mean corpuscular hemoglobin (mass per erythrocyte) 30 pg 25-34 Automated erythrocyte mean corpuscular hemoglobin concentration measurement ( mass/volume) 33 g/dL 32-36 Automated erythrocyte distribution width ratio 13.5 % 10.0-14.5 Automated blood platelet count (count/volume) 243 10*3/uL 130-400 Automated blood platelet mean volume measurement 10.2 [foz_us] 7.4-10.4 Automated blood neutrophils/100 leukocytes 50 % 42-75 Automated blood lymphocytes/100 leukocytes 39 % 12-44 Blood monocytes/100 leukocytes 9 % 0-12 Automated blood eosinophils/100 leukocytes 2 % 0-10 Automated blood basophils/100 leukocytes 0 % 0-10 Blood neutrophils automated count (number/volume) 3.6 10*3 1.8-7.8 Blood lymphocytes automated count (number/volume) 2.8 10*3 1.0-4.0 Blood monocytes automated count (number/volume) 0.6 10*3 0.0-1.0 Automated eosinophil count 0.1 10*3/uL 0.0-0.3 Automated blood basophil count (count/volume) 0.0 10*3/uL 0.0-0.1 Whole blood basic metabolic panel - 02/21/17 06:50 Serum or plasma sodium measurement (moles/volume) 140 mmol/L 135-145 Serum or plasma potassium measurement (moles/volume) 4.1 mmol/L 3.6-5.0 Serum or plasma chloride measurement (moles/volume) 108 mmol/L 98-107 Carbon dioxide 22 mmol/L 21-32 Serum or plasma anion gap determination (moles/volume) 10 mmol/L 5-14 Serum or plasma urea nitrogen measurement (mass/volume) 11 mg/dL 7-18 Serum or plasma creatinine measurement (mass/volume) 0.72 mg/dL 0.60-1.30 Serum or plasma urea nitrogen/creatinine mass ratio 15 NRG Serum or plasma creatinine measurement with calculation of estimated glomerular filtration rate > NRG Serum or plasma glucose measurement (mass/volume) 108 mg/dL 70-105 Serum or plasma calcium measurement (mass/volume) 8.9 mg/dL 8.5-10.1 Thyroid Stimulating Hormone - 10/19/17 15:45 TSH 1.81 mIU/mL 0.32-5.00 Encounters ACCT No. Visit Date/Time Discharge Status Pt. Type Provider Facility Loc./Unit Complaint [id number] 11/08/2017 15:09:00 11/08/2017 16:26:00 DIS Outpatient CHRISTIANNE HIGGINS, CINDY [facility] PREOP RIGHT STONE [id number] 11/05/2017 16:18:00 11/05/2017 23:59:59 CLS Outpatient JIMY LEVINE Donald [facility] RAD RIGHT FLANK PAIN [id number] 02/19/2017 17:46:00 02/23/2017 14:30:00 DIS Inpatient PINEDA HIGGINS, SLAVA Kiser [facility] 4TH LEFT FACIAL ABSCESS AND CELLULITIS [id number] 11/18/2016 14:21:00 11/18/2016 18:19:00 DIS Emergency SARAH HIGGINS, JORDANA Chen [facility] ER SWELLING LEFT SIDE OF FACE [id number] 08/10/2012 10:32:00 08/11/2012 16:40:00 DIS Outpatient YAW RAMSAY MD [facility] ENDOMETRIOSIS; CHRONIC PELVIC PAIN [id number] 08/04/2012 08:33:00 08/04/2012 23:59:59 CLS Outpatient YAW RAMSAY MD [facility] PREOP ENDOMETRIOSIS; CHRONIC PELVIC PAIN [id number] 11/09/2017 12:30:00 PEN Preadmit CINDY FAUST MD [facility] RIGHT STONE [id number] 11/08/2017 12:14:00 ACT Outpatient CINDY FAUST MD [facility] RAD N20.0 RT RENAL STONE [id number] 03/01/2012 14:35:00 Document Registration [id number] 10/19/2017 15:45:00 10/19/2017 23:59:00 DIS Outpatient ANTONIO SIMENTAL [id number] 03/05/2017 05:44:00 03/05/2017 06:25:00 DIS Outpatient ANTONIO SIMENTAL [id number] 03/04/2017 06:30:00 03/04/2017 07:20:00 DIS Outpatient ANTONIO SIMENTAL [id number] 03/03/2017 06:42:00 03/03/2017 07:25:00 DIS Outpatient ANTONIO SIMENTAL [id number] 03/02/2017 07:00:00 03/02/2017 07:42:00 DIS Outpatient ANTONIO SIMENTAL [id number] 03/01/2017 07:52:00 03/01/2017 08:37:00 DIS Outpatient ANTONIO SIMENTAL [id number] 02/28/2017 10:21:00 02/28/2017 11:00:00 DIS Outpatient ANTONIO SIMENTAL [id number] 02/27/2017 09:09:00 02/27/2017 09:55:00 DIS Outpatient ANTONIO SIMENTAL [id number] 02/26/2017 08:23:00 02/26/2017 09:00:00 DIS Outpatient ANTONIO SIMENTAL [id number] 02/25/2017 08:13:00 02/25/2017 09:09:00 DIS Outpatient ANTONIO SIMENTAL [id number] 02/24/2017 16:08:00 02/24/2017 17:37:00 DIS Outpatient ANTONIO SIMENTAL [id number] 01/01/2017 14:58:00 01/01/2017 23:59:00 DIS Outpatient Fabien Mandie [id number] 10/15/2016 05:39:00 10/15/2016 07:15:00 DIS Outpatient KARAN ZHENG [id number] 10/09/2016 09:00:00 10/09/2016 23:59:00 DIS Outpatient Fabien Mandie [id number] 03/13/2016 08:42:00 03/13/2016 23:59:00 DIS Outpatient Tavares Aiken [id number] 03/12/2016 11:28:00 03/12/2016 12:45:00 DIS Outpatient ANTONIO SIMENTAL [id number] 02/12/2016 10:48:00 02/12/2016 23:59:00 DIS Outpatient SHARMIN SIMENTALHEL [id number] 01/29/2016 19:39:00 01/29/2016 21:03:00 [place] [facility] [place] [id number] 01/29/2016 20:25:40 Document Registration [id number] 01/01/2017 14:58:00 Document Registration
[2017-11-09 09:55] VITALS: BP 154/97
[2017-11-09] MEDS ORDERED: LACTATED RINGERS 1,000 ML IV PRN ×2 (10:25→10:45)
--- NOTE | 2017-11-09 10:25 | Progress Note-Pre Operative ---
Pre-Operative Progress Note H&P Reviewed The H&P was reviewed, patient examined and no changes noted. Date Seen by Provider: Nov 09, 2017 Time Seen by Provider: 10:25 Date H&P Reviewed: Nov 09, 2017 Time H&P Reviewed: 10:25 Pre-Operative Diagnosis: RT RENAL STONE CINDY FAUST MD Nov 09, 2017 10:25 am
[2017-11-09] MEDS ORDERED: fentaNYL INJECTION 100 MCG/2 ML AMP IV ONE ×2 (10:30→13:15)
[2017-11-09] MEDS ORDERED: cefTRIAXone FOR IV USE 1,000 MG in NS (IVPB) 50 ML IV ONE (10:45)
[2017-11-09] MEDS ORDERED: CATHETER FLUSH 10 ML SYR IV PRN (10:45)
--- NOTE | 2017-11-09 11:14 | Diagnostic Imaging Report ---
INDICATION: Nephrolithiasis. COMPARISON: 11/08/2017. FINDINGS: The lung bases are clear. The bowel gas pattern is nonspecific. There is no free air. Surgical clips are seen in the right upper quadrant. There is a persistent stone projected over the mid right kidney. IMPRESSION: Persistent right nephrolithiasis. Nonspecific bowel gas pattern. Dictated by: Dictated on workstation # [id number]
[2017-11-09] MEDS ORDERED: FUROSEMIDE 40 MG/4 ML INJ (LASIX) ONE (12:53)
[2017-11-09] MEDS ORDERED: LIDOCAINE PF 2% 2 ML (XYLOCAINE) VIAL ONE (12:53)
[2017-11-09] MEDS ORDERED: fentaNYL INJECTION 100 MCG/2 ML AMP ONE ×2 (13:07→13:19)
--- NOTE | 2017-11-09 13:10 | Discharge Inst-Urology ---
Discharge Inst-Urology Discharge Medications New, Converted, or Re-newed RX: RX on Chart Patient Instructions/Follow Up Plan Please make appointment to been seen in office in 2 weeks. KUB prior to it KUB on way home Post ESWL instructions Increase oral fluids for 48 hours and then as needed. Diet and Activity as tolerated. If questions or concerns contact your physician Or seek help at emergency department. CINDY FAUST MD Nov 09, 2017 1:10 pm
--- NOTE | 2017-11-09 13:11 | Progress Note-Post Operative ---
Post-Operative Progess Note Surgeon (s)/Circular Tank Cooper (s) Surgeon CINDY FAUST MD Circular Tank Cooper: NONE Pre-Operative Diagnosis RT RENAL STONE Post-Operative Diagnosis SAME Procedure & Operative Findings Date of Procedure 11/09/17 Procedure Performed/Findings RT ESWL Anesthesia Type GENERAL Estimated Blood Loss Estimated blood loss (mL): NONE Specimens/Packing Specimens Removed NONE Packing: NONE CINDY FAUST MD Nov 09, 2017 1:11 pm
[2017-11-09] MEDS ORDERED: ONDANSETRON 4 MG/2 ML (SDV) Z0FRAN ONE (13:19)
[2017-11-09] MEDS ORDERED: DEXAMETHASONE 10 MG/ML (DECADRON) 1 ML VIAL ONE (13:19)
[2017-11-09] MEDS ORDERED: proPOfol 200 MG/20 ML (DIPRIVAN) VIAL IV ONE (13:19)
[2017-11-09] MEDS ORDERED: MIDAZOLAM 2 MG/2 ML (VERSED) VIAL ONE (13:20)
[2017-11-09] MEDS ORDERED: SEVOFLURANE (ULTANE) 15 ML INHAL SOLN ONE (13:21)
[2017-11-09] MEDS ORDERED: KETOROLAC 30 MG/ML VIAL ONE (13:21)
[2017-11-09] MEDS ORDERED: MEPERIDINE (DEMEROL) INJ 50 MG/ML IVP ONE ×2 (13:30→14:15)
[2017-11-09] MEDS ORDERED: fentaNYL INJECTION 100 MCG/2 ML AMP IVP ONE (13:30)
[2017-11-09] MEDS ORDERED: morphine INJ 10 MG/ML 1ML (SYR OR VIAL) IVP ONE ×2 (13:30→14:15)
[2017-11-09] MEDS ORDERED: ONDANSETRON 4 MG/2 ML (SDV) Z0FRAN IVP PRN ×2 (13:30→14:15)
--- NOTE | 2017-11-09 14:06 | Anesthesia-General Post-Op ---
General Patient Condition Mental Status/LOC: Same as Preop Cardiovascular: Satisfactory Nausea/Vomiting: Absent Respiratory: Satisfactory Pain: Controlled Complications: Absent Post Op Complications Complications None Follow Up Care/Instructions Patient Instructions None needed. Anesthesia/Patient Condition Patient Condition Patient is doing well, no complaints, stable vital signs, no apparent adverse anesthesia problems. No complications reported per nursing. D/C home per [facility] Criteria: Yes ARCADIO MELARA CRNA Nov 09, 2017 14:06
[2017-11-09 14:35] VITALS: BP 134/89
[2017-11-09] MEDS ORDERED: HYDR-3870 PO (15:04)
[2017-11-09] MEDS ORDERED: NITR-65 PO (15:04)
[2017-11-09] MEDS ORDERED: TAMS0.4C98 PO (15:04)
[2017-11-09 15:05] VITALS: BP 136/85
[2017-11-09 15:35] VITALS: BP 125/86
--- NOTE | 2017-11-09 16:56 | Diagnostic Imaging Report ---
INDICATION: Post extracorporeal shockwave lithotripsy. TECHNIQUE: Two supine view of the abdomen at 3:41 PM CORRELATION STUDY: 11/09/2017 FINDINGS: Moderate amount of overlying bowel gas and stool obscures detail. A previously noted small calcification in right upper quadrant currently superimposed just above the right 12th rib appears generally stable in its position and appearance. No additional calcification suggested over the renal silhouettes and/or expected course of the ureter. Presumably cholecystectomy clips in the right upper quadrant. Likely fallopian tube closure devices in the pelvis. IMPRESSION: 1. No appreciable change in the appearance and/or significant location of the right-sided renal stone. Dictated by: Dictated on workstation # [id number]
--- NOTE | 2017-11-09 19:24 | OPERATIVE REPORT ---
DATE OF SERVICE: 11/09/2017 PREOPERATIVE DIAGNOSIS: Right renal stone. POSTOPERATIVE DIAGNOSIS: Right renal stone. OPERATION PERFORMED: Right ESWL. SURGEON: Darshan Faust MD ANESTHESIA: General. COMPLICATIONS: None. DESCRIPTION OF PROCEDURE: Under satisfactory general anesthesia and the patient in supine position on the ESWL table, the right renal stone was localized and shocks were delivered at kV of 4. At 1200 shocks, we could not visualize the stone anymore. The patient received 40 mg of Lasix and 30 mg of Toradol IV at the end of the procedure. She tolerated the procedure and anesthesia well and was sent to recovery room in stable condition. Job ID: [id number] DocumentID: [id number] Dictated Date: 11/09/2017 13:52:01 Charge Manager Date: 11/09/2017 19:23:13 Dictated By: DARSHAN FAUST MD
== END 2017-11-09 15:40 | disposition home or self-care (01) ==
LOC: SDC 09:49
PROVIDERS: ATTEND Urology
DX: N20.0 Calculus of kidney (principal); K21.9 Gastro-esophageal reflux disease without esophagitis; F17.210 Nicotine dependence, cigarettes, uncomplicated; E66.01 Morbid (severe) obesity due to excess calories; Z68.39 Body mass index [BMI] 39.0-39.9, adult; Z79.899 Other long term (current) drug therapy
CPT/HCPCS: 74018; 87081

== ENCOUNTER → 2017-11-23 | Outpatient (CLI) | payer OTHER ==
[~2017-11-23] MED LIST changes: +HYDR-3870 PO; +NITR-65 PO; +TAMS0.4C98 PO
--- NOTE | 2017-11-23 14:24 | Diagnostic Imaging Report ---
INDICATION: Nephrolithiasis. FINDINGS: Bowel gas pattern is nonspecific. There appears to be a tiny calcification projected over the right kidney. No other abnormal calcifications are appreciated. The osseous structures are unremarkable. IMPRESSION: Findings suspect for a tiny stone projected over the right kidney. Dictated by: Dictated on workstation # [id number]
== END ==
LOC: RAD 13:43
PROVIDERS: ATTEND Urology
DX: N20.0 Calculus of kidney (principal)
CPT/HCPCS: 74018

== ENCOUNTER → 2018-05-10 | Outpatient (CLI) | payer OTHER ==
--- NOTE | 2018-05-10 14:04 | Diagnostic Imaging Report ---
INDICATION: History of renal calculi. COMPARISON: 11/23/2017. FINDINGS: Two supine radiographic views of the abdomen were obtained. Punctate calculus is again identified projecting over the midportion of the right kidney and measures 3-4 mm in diameter. No other unexpected extraosseous calcification or radiopaque foreign bodies are seen. Small bowel loops are nondistended. Moderate amount of colonic air and stool is noted. There is no large collection of free intraperitoneal air. Bony structures show no gross acute abnormalities. IMPRESSION: 1. Redemonstration of right-sided nephrolithiasis. 2. Moderate colonic air and stool. Please correlate for constipation. Dictated by: Dictated on workstation # [id number]
== END ==
LOC: RAD 12:10
PROVIDERS: ATTEND Urology
DX: N20.2 Calculus of kidney with calculus of ureter (principal)
CPT/HCPCS: 74018

== ENCOUNTER 2018-05-13 12:22 | Outpatient (CLI) | payer OTHER ==
[~2018-05-13] VITALS: Ht 175.3 cm; Wt 124.3 kg
[2018-05-13 12:31] VITALS: BP 143/87
[2018-05-13 13:04] LABS: BASOPHILS # (AUTO) 0.1 10^3/uL (0.0-0.1); BASOPHILS % (AUTO) 1 % (0-10); EOSINOPHILS # (AUTO) 0.1 10^3/uL (0.0-0.3); EOSINOPHILS % (AUTO) 1 % (0-10); HEMATOCRIT 40 % (35-52); HEMOGLOBIN 13.5 G/DL (11.5-16.0); LYMPHOCYTES # (AUTO) 3.1 X 10^3 (1.0-4.0); LYMPHOCYTES % (AUTO) 31 % (12-44); MEAN CORPUSCULAR HEMOGLOBIN 30 PG (25-34); MEAN CORPUSCULAR HGB CONC 34 G/DL (32-36); MEAN CORPUSCULAR VOLUME 90 FL (80-99); MEAN PLATELET VOLUME 10.4 FL (7.4-10.4); MONOCYTES # (AUTO) 0.6 X 10^3 (0.0-1.0); MONOCYTES % (AUTO) 6 % (0-12); NEUTROPHILS # (AUTO) 6.1 X 10^3 (1.8-7.8); NEUTROPHILS % (AUTO) 62 % (42-75); PLATELET COUNT 223 10^3/uL (130-400); RED CELL DISTRIBUTION WIDTH 13.8 % (10.0-14.5); WHITE BLOOD COUNT 9.9 10^3/uL (4.3-11.0)
[2018-05-13 13:23] LABS: BUN/CREATININE RATIO 16; CALCIUM 9.8 MG/DL (8.5-10.1); CARBON DIOXIDE 22 MMOL/L (21-32); CHLORIDE 107 MMOL/L (98-107); CREATININE SERUM 0.79 MG/DL (0.60-1.30); GFR ESTIMATED > 60; GLUCOSE 91 MG/DL (70-105); PHOSPHORUS 4.3 MG/DL (2.3-4.7); POTASSIUM 3.6 MMOL/L (3.6-5.0); SODIUM 142 MMOL/L (135-145)
== END 2018-05-13 12:50 | disposition home or self-care (01) ==
LOC: PREOP 12:22
PROVIDERS: ATTEND Urology
DX: Z01.812 Encounter for preprocedural laboratory examination (principal); Z11.2 Encounter for screening for other bacterial diseases; N20.1 Calculus of ureter
CPT/HCPCS: 36415; 80048; 83970; 84100; 84550; 85025; 87081

== ENCOUNTER 2018-05-17 07:15 | Day surgery (SDC) | payer OTHER ==
[~2018-05-17] VITALS: Ht 175.3 cm; Wt 124.3 kg
--- OUTSIDE RECORDS SUMMARY | 2018-05-17 07:21 | XMS REPORT | Continuity of Care Document ---
Author Author [facility] Organization [facility] Address Unknown Phone Unavailable Allergies Active Description Code Type Severity Reaction Onset Reported/Identified Relationship to Patient Clinical Status Yes IMITREX IMITREX SEVERE Yes IMITREX UNKNOWN UNKNOWN Yes IMITREX SEVERE ANAPHYLACTIC SHOCK Yes sumatriptan [id number] Drug Allergy Mild N/A 11/08/2017 Medications Medication [...] (NS 50CC MINI-BAG) ml 03/05/2017 03/05/2017 ONCE&0546 ALBUTEROL SVN 2.5MG/3CC LIQ 2.5 MG (PROVENTIL JERAMY 2.5MG/3CC) MG 03/27/2018 03/27/2018 ONCE&1652 AMOX-CLAV 875/125 TAB 875 MG-125MG (AUGMENTIN) TAB 03/27/2018 03/27/2018 ONCE&1749 ONDANSETRON VIAL INJ 4 MG/2CC (ZOFRAN 2CC VIAL) MG 04/29/2018 04/29/2018 ONCE&1014 FENTANYL INJ 100 MCG/2CC VIAL MCG 04/29/2018 04/29/2018 ONCE&1014 KETOROLAC VIAL INJ 30 MG/CC (TORADOL VIAL) MG 04/29/2018 04/29/2018 ONCE&1142 LEVOFLOXACIN PREMIX IV BAG INJ 750 MG (LEVAQUIN PREMIX IV BAG) MG 04/29/2018 04/29/2018 ONCE&1245 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 08/11/2012 YAW RAMSAY MD Ot 617.0 UTERINE ENDOMETRIOSIS 08/11/2012 YAW RAMSAY MD, Ot 617.1 OVARIAN ENDOMETRIOSIS 08/11/2012 YAW RAMSAY MD, Ot 617.3 PELV PERIT ENDOMETRIOSIS 08/11/2012 YAW RAMSAY MD, Ot 620.1 CORPUS LUTEUM CYST 08/11/2012 YAW RAMSAY MD, Ot 625.6 FEM STRESS INCONTINENCE 08/11/2012 YAW RAMSAY MD, Ot 626.8 MENSTRUAL DISORDER NEC 01/29/2016 Sera Naranjo 785.6 ENLARGEMENT OF LYMPH NODES 01/29/2016 Sera Naranjo A R59.9 ENLARGED LYMPH NODES, UNSPECIFIED 03/12/2016 ANTONIO SIMENTAL A 683 ACUTE LYMPHADENITIS 03/12/2016 ANTONIO SIMENTAL L04.0 ACUTE LYMPHADENITIS OF FACE, HEAD AND NECK 10/15/2016 KARAN ZHENG 346.90 MIGRAINE, UNSPECIFIED, WITHOUT MENTION OF INTRACTABLE MIGRAINE, WITHOUT MENTION OF STATUS MIGRAINOSUS 10/15/2016 KARAN ZHENG 785.6 ENLARGEMENT OF LYMPH NODES 10/15/2016 KARAN ZHENG G43.909 MIGRAINE, UNSP, NOT INTRACTABLE, WITHOUT STATUS [...] DEPRESSIVE DISORDER, SINGLE EPISOD 11/18/2016 JORDANA SMITH MD, Ot K11.20 SIALOADENITIS, UNSPECIFIED 11/18/2016 JORDANA SMITH MD, Ot R22.0 LOCALIZED SWELLING, MASS AND LUMP, HEAD 11/18/2016 JORDANA SMITH MD, Ot Z87.19 PERSONAL HISTORY OF OTHER DISEASES OF TH 11/18/2016 JORDANA SMITH MD, Ot Z90.710 ACQUIRED [...] HISTORY OF OTHER DISEASES OF TH 11/20/2016 JORDANA SMITH MD, Ot Z90.710 ACQUIRED ABSENCE OF BOTH CERVIX AND UTER 02/19/2017 Ot 592.0 CALCULUS OF KIDNEY 02/19/2017 YAW ARMSAY MD Ot 285.9 ANEMIA NOS 02/19/2017 YAW RAMSAY MD Ot 617.9 ENDOMETRIOSIS NOS 02/19/2017 YAW RAMSAY MD, Ot V72.63 PRE-PROCEDURAL LABORATORY EXAMINATION 02/19/2017 YAW RAMSAY MD, Ot V74.8 SCREEN-BACTERIAL DIS NEC 02/23/2017 SLAVA [...] R03.0 ELEVATED BLOOD-PRESSURE READING, W/O MARV 02/23/2017 PINEDA HIGGINS, SLAVA Kiser Ot B95.5 UNSP STREPTOCOCCUS THE CAUSE OF [...] R03.0 ELEVATED BLOOD-PRESSURE READING, W/O MARV 02/24/2017 ANTONIO SIMENTAL A 527.2 SIALOADENITIS 02/24/2017 SIMENTAL, ANTONIO W 527.5 SIALOLITHIASIS 02/24/2017 SIMENTAL, ANTONIO A K11.21 ACUTE SIALOADENITIS 02/24/2017 SIMENTAL, ANTONIO W K11.5 SIALOLITHIASIS 02/25/2017 SIMENTAL, ANTONIO A 527.2 SIALOADENITIS 02/25/2017 SIMENTAL, ANTONIO W 527.5 SIALOLITHIASIS 02/25/2017 SIMENTAL, ANTONIO A K11.21 ACUTE SIALOADENITIS 02/25/2017 SIMENATL, ANTONIO W K11.5 SIALOLITHIASIS 02/26/2017 SIMENTAL, ANTONIO A 527.2 SIALOADENITIS 02/26/2017 SIMENTAL, ANTONIO W 527.5 SIALOLITHIASIS 02/26/2017 SIMENTAL, ANTONIO A K11.21 ACUTE SIALOADENITIS 02/26/2017 SIMENTAL, ANTONIO W K11.5 SIALOLITHIASIS 02/27/2017 SIMENTAL, ANTONIO A 527.2 SIALOADENITIS 02/27/2017 SIMENTAL, ANTONIO W 527.5 SIALOLITHIASIS 02/27/2017 SIMENTAL, ANTONIO A K11.21 ACUTE SIALOADENITIS 02/27/2017 SIMENTAL, ANTONIO [...] WITHOUT DIAGNOSIS OF HYPERTENSION 10/20/2017 SIMENTAL, ANTONIO W V77.91 SCREENING FOR LIPOID DISORDERS 10/20/2017 ANTONIO SIMENTAL Z13.220 ENCOUNTER FOR SCREENING FOR LIPOID DISORDERS 10/20/2017 ANTONIO SIMENTAL A 796.2 ELEVATED BLOOD PRESSURE READING WITHOUT DIAGNOSIS OF HYPERTENSION 10/20/2017 ANTONIO SIMENTAL R03.0 ELEVATED BLOOD-PRESSURE READING, WITHOUT DIAGNOSIS OF HYPERTENSION 10/20/2017 ANTONIO SIMENTAL V77.91 SCREENING FOR LIPOID DISORDERS 10/20/2017 ANTONIO SIMENTAL Z13.220 ENCOUNTER FOR SCREENING FOR LIPOID DISORDERS 10/20/2017 ANTONIO SIMENTAL A 796.2 ELEVATED BLOOD PRESSURE READING WITHOUT DIAGNOSIS OF HYPERTENSION 10/20/2017 ANTONIO SIMENTAL R03.0 ELEVATED BLOOD-PRESSURE READING, WITHOUT DIAGNOSIS OF HYPERTENSION 10/20/2017 ANTONIO SIMENTAL V77.91 SCREENING FOR LIPOID DISORDERS 10/20/2017 ANTONIO SIMENTAL Z13.220 ENCOUNTER FOR SCREENING FOR LIPOID DISORDERS 11/08/2017 LEVINE JIMY L BLADE WORKER Ot K76.0 FATTY (CHANGE OF) LIVER, NOT ELSEWHERE C 11/08/2017 ABNER JIMY L BLADE WORKER Ot N20.0 CALCULUS OF KIDNEY 11/08/2017 LEVINERANI L BLADE WORKER Ot N28.1 CYST OF KIDNEY, ACQUIRED 11/08/2017 LEVINE, JIMY L BLADE WORKER Ot K76.0 FATTY (CHANGE OF) LIVER, NOT ELSEWHERE C 11/08/2017 ABNER JIMY L BLADE WORKER Ot N20.0 CALCULUS OF KIDNEY 11/08/2017 JIMY LEVINE BLADE WORKER Ot N28.1 CYST OF KIDNEY, ACQUIRED 11/08/2017 CHRISTIANNE HIGGINS, CINDY Chaudhry Ot Z01.818 ENCOUNTER FOR OTHER PREPROCEDURAL EXAMIN 11/09/2017 CINDY FAUST MD Ot N20.0 CALCULUS OF KIDNEY 11/09/2017 CINDY FAUST MD Ot Z98.890 OTHER SPECIFIED POSTPROCEDURAL STATES 11/09/2017 CINDY FAUST MD Ot E66.01 MORBID (SEVERE) OBESITY DUE TO EXCESS CA 11/09/2017 CINDY FAUST MD Ot F17.210 NICOTINE DEPENDENCE, CIGARETTES, UNCOMPL 11/09/2017 CINDY FAUST MD Ot K21.9 GASTRO-ESOPHAGEAL REFLUX DISEASE WITHOUT 11/09/2017 CINDY FAUST MD, Ot N20.0 CALCULUS OF KIDNEY 11/09/2017 CINDY FAUST MD, Ot Z68.39 BODY MASS INDEX (BMI) 39.0-39.9, ADULT 11/09/2017 CINDY FAUST MD, Ot Z79.899 OTHER [facility] (CURRENT) DRUG THERAPY 11/11/2017 CINDY FAUST MD, Ot E66.01 MORBID (SEVERE) OBESITY DUE TO EXCESS CA 11/11/2017 CINDY FAUST MD, Ot F17.210 NICOTINE DEPENDENCE, CIGARETTES, UNCOMPL 11/11/2017 CINDY FAUST MD, Ot K21.9 GASTRO-ESOPHAGEAL REFLUX DISEASE WITHOUT 11/11/2017 CINDY FAUST MD, Ot N20.0 CALCULUS OF KIDNEY 11/11/2017 CINDY FAUST MD, Ot Z68.39 BODY MASS INDEX (BMI) 39.0-39.9, ADULT 11/11/2017 CINDY FAUST MD, Ot 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 11/13/2017 JIMY LEVINE BLADE WORKER Ot K76.0 FATTY (CHANGE OF) LIVER, NOT ELSEWHERE C 11/13/2017 JIMY LEVINE BLADE WORKER Ot N20.0 CALCULUS OF KIDNEY 11/13/2017 IJMY LEVINE BLADE WORKER Ot N28.1 CYST OF KIDNEY, ACQUIRED 11/13/2017 CINDY FAUST MD, Ot N20.0 CALCULUS OF KIDNEY 11/13/2017 CINDY FAUST MD, Ot Z98.890 OTHER SPECIFIED POSTPROCEDURAL STATES 11/24/2017 CINDY FAUST MD, Ot N20.0 CALCULUS OF KIDNEY 03/27/2018 KARAN ZHENG W 466.0 ACUTE BRONCHITIS 03/27/2018 KARAN ZHENG W J20.9 ACUTE BRONCHITIS, UNSPECIFIED 04/29/2018 Jarred Ren 401.0 MALIGNANT ESSENTIAL HYPERTENSION 04/29/2018 Jarred Ren 592.0 CALCULUS OF KIDNEY 04/29/2018 Jarred Ren I10 ESSENTIAL (PRIMARY) HYPERTENSION 04/29/2018 Howayek, Jarred W N20.0 CALCULUS OF KIDNEY 05/11/2018 CHRISTIANNE HIGGINS, CINDY Chaudhry Ot N20.2 CALCULUS OF KIDNEY WITH CALCULUS OF URET 05/16/2018 CHRISTIANNE HIGGINS, CINDY Chaudhry Ot N20.1 CALCULUS OF URETER 05/16/2018 CHRISTIANNE HIGGINS, CINDY Chaudhry Ot Z01.812 ENCOUNTER FOR PREPROCEDURAL LABORATORY E 05/16/2018 CINDY FAUST MD, Ot Z11.2 ENCOUNTER FOR SCREENING FOR OTHER BACTER Procedures Code Description Performed By Performed On [id number] DRAINAGE OF LEFT PAROTID GLAND, PERCUTAN 02/19/2017 [...] 4.28 mg /dL 0.00-0.50 Other Culture - 01/01/17 14:59 PRELIM CULTURE RESULTS No Growth 24 [...] culture - 02/19/17 14:20 Bacterial blood culture NG [facility] PT panel in platelet poor [...] culture - 02/19/17 14:36 Bacterial blood culture NG NR Gram stain microscopy - 02/19/17 18:00 Gram stain microscopy Moderate # WBC's, few gram positive cocci in chains NRG Bacteria identification in wound by culture - 02/19/17 18:00 Bacteria identification in wound by culture [id number] [facility] FREE TEXT EXTERNAL (ANAEROBIC GNR) NR QUANTITY OF GROWTH Abundant Growth NRG Bacteria identification in isolate by anaerobe culture - 02/19/17 18:00 QUANTITY OF GROWTH Moderate Growth NRG Bacteria identification in isolate by anaerobe culture [id number] [facility] [...] or plasma urea nitrogen/creatinine mass ratio [address] [facility] Serum or plasma creatinine measurement with calculation of estimated glomerular filtration rate > [facility] Serum or plasma glucose measurement (mass/volume) 104 [...] - 10/19/17 15:45 TSH 1.81 mIU/mL 0.32-5.00 Methicillin resistant Staphylococcus aureus (MRSA) screening culture - 10:05 Methicillin resistant Staphylococcus aureus (MRSA) screening culture NEG NRG Mycoplasma - 03/27/18 17:10 Mycoplasma Negative Negative Comprehensive Metabolic Panel - 03/27/18 17:10 Albumin 4.2 g/dL 3.6-5.1 ALP 111 U/L 35-130 ALT 20 U/L 6-45 Anion Gap 14 6-14 AST 18 U/L 2-40 BUN 10 mg/dL 5-25 Calcium 9.6 mg/dL 8.3-10.4 Chloride 107 mmol/L 95-114 CO2 21 mEq/L 22-33 Creat 0.81 mg/dL 0.50-1.50 eGFR 77 mL/min/1.73m2 >59 Globulin 3.3 g/dL 2.3-3.5 Glucose 108 mg/dL 70-110 Osmo 285 280-295 Potassium 3.9 mmol/L 3.5-5.3 Sodium 138 mmol/L 134-148 TBil 0.3 mg/dL 0.2-1.2 TP 7.5 g/dL 6.0-8.3 Blood Culture - 03/27/18 17:10 PRELIM CULTURE RESULTS Blood Culture Negative, No Growth Day 1 MEDIA PLATED Setup at 17:39 on 03/27/2018 C45 CULTURE SOURCE right hand Blood Culture - 03/27/18 17:10 PRELIM CULTURE RESULTS Blood Culture Negative, No Growth Day 1 FINAL CULTURE RESULTS Blood Culture Negative, No Growth Day 5 MEDIA PLATED Setup at 17:39 on 03/27/2018 C45 CULTURE SOURCE right hand Blood Culture - 03/27/18 17:15 PRELIM CULTURE RESULTS Blood Culture Negative, No Growth Day 1 MEDIA PLATED Setup at 17:40 on 03/27/2018 B40 CULTURE SOURCE left arm Blood Culture - 03/27/18 17:15 PRELIM CULTURE RESULTS Blood Culture Negative, No Growth Day 1 FINAL CULTURE RESULTS Blood Culture Negative, No Growth Day 5 MEDIA PLATED Setup at 17:40 on 03/27/2018 B40 CULTURE SOURCE left arm Urinalysis - 04/29/18 09:59 Icotest N/A Negative Urine Volume Urine Volume Sufficient (10mL) Urine Yeast No Yeast present Urine-Appearance Slightly Cloudy Clear Urine-Bacteria Negative Urine-Bilirubin Negative Negative Urine-Blood 1+ Negative Urine-Color Yellow Colorless-Lt. Yellow Urine-Epithelial Cells TNTC Urine-Glucose Negative Negative Urine-Ketones Negative Negative Urine-Leukocytes Negative Negative Urine-Mucus 4+ Urine-Nitrite Negative Negative Urine-Other Urine Saved if Culture Needed (48hrs from time of collection) Urine-pH 5.5 5-8.5 Urine-Protein Negative Negative Urine-RBC TNTC Urine-Specific [place] >=1.030 1.000-1.030 Urine-WBC Rare/HPF Urobilinogen 0.2 E.U./dL 0.2-1.0 CBC with Auto Diff - 04/29/18 10:14 Baso% 0.30 % 0.00-2.50 Eos 0.1 K/uL 0.0-0.7 Eos% 0.5 % 0.0-7.0 Hct 45.7 % 36.0-46.0 Hgb 15.4 g/dL 13.0-15.0 Lym 4.75 K/uL 0.60-3.40 Lym% 31.0 % 10.0-50.0 MCH 30.1 pg 27.0-31.0 MCHC 33.7 g/dL 32.0-36.0 MCV 89.3 fL 80.0-97.0 Cedar% 7.0 % 0.0-12.0 MPV 10.0 fL 7.4-10.0 Froylan% 61.2 % 37.0-80.0 Plt 260 K/uL 150-400 RBC 5.12 M/uL 3.60-5.00 RDW 13.7 % 11.6-14.8 WBC 15.30 K/uL 5.00-10.00 Froylan 9.36 K/uL 2.00-6.90 Cedar 1.1 K/uL 0.0-0.9 Baso 0.0 K/uL 0.0-0.2 Complete blood count (CBC) with automated white blood cell (WBC) differential - 05/13/18 12:41 Blood leukocytes automated count (number/volume) 9.9 10*3/uL 4.3-11.0 Blood erythrocytes automated count (number/volume) 4.45 10*6/uL 4.35-5.85 Venous blood hemoglobin measurement (mass/volume) 13.5 g/dL 11.5-16.0 Blood hematocrit (volume fraction) 40 % 35-52 Automated erythrocyte mean corpuscular volume 90 [foz_us] 80-99 Automated erythrocyte mean corpuscular hemoglobin (mass per erythrocyte) 30 pg 25-34 Automated erythrocyte mean corpuscular hemoglobin concentration measurement ( mass/volume) 34 g/dL 32-36 Automated erythrocyte distribution width ratio 13.8 % 10.0-14.5 Automated blood platelet count (count/volume) 223 10*3/uL 130-400 Automated blood platelet mean volume measurement 10.4 [foz_us] 7.4-10.4 Automated blood neutrophils/100 leukocytes 62 % 42-75 Automated blood lymphocytes/100 leukocytes 31 % 12-44 Blood monocytes/100 leukocytes 6 % 0-12 Automated blood eosinophils/100 leukocytes 1 % 0-10 Automated blood basophils/100 leukocytes 1 % 0-10 Blood neutrophils automated count (number/volume) 6.1 10*3 1.8-7.8 Blood lymphocytes automated count (number/volume) 3.1 10*3 1.0-4.0 Blood monocytes automated count (number/volume) 0.6 10*3 0.0-1.0 Automated eosinophil count 0.1 10*3/uL 0.0-0.3 Automated blood basophil count (count/volume) 0.1 10*3/uL 0.0-0.1 Whole blood basic metabolic panel - 05/13/18 12:41 Serum or plasma sodium measurement (moles/volume) 142 mmol/L 135-145 Serum or plasma potassium measurement (moles/volume) 3.6 mmol/L 3.6-5.0 Serum or plasma chloride measurement (moles/volume) 107 mmol/L 98-107 Carbon dioxide 22 mmol/L 21-32 Serum or plasma anion gap determination (moles/volume) 13 mmol/L 5-14 Serum or plasma urea nitrogen measurement (mass/volume) 13 mg/dL 7-18 Serum or plasma creatinine measurement (mass/volume) 0.79 mg/dL 0.60-1.30 Serum or plasma urea nitrogen/creatinine mass ratio 16 NRG Serum or plasma creatinine measurement with calculation of estimated glomerular filtration rate > NRG Serum or plasma glucose measurement (mass/volume) 91 mg/dL 70-105 Serum or plasma calcium measurement (mass/volume) 9.8 mg/dL 8.5-10.1 Serum or plasma uric acid measurement (mass/volume) - 05/13/18 12:41 Serum or plasma uric acid measurement (mass/volume) 5.0 mg/dL 2.6-7.2 Serum or plasma phosphate measurement (mass/volume) - 05/13/18 12:41 Serum or plasma phosphate measurement (mass/volume) 4.3 mg/dL 2.3-4.7 Methicillin resistant Staphylococcus aureus (MRSA) screening culture - 12:41 Methicillin resistant Staphylococcus aureus (MRSA) screening culture NEG NRG Serum or plasma intact pararthyroid hormone measurement (mass/volume) - 12:41 Serum or plasma intact parathyroid hormone measurement (mass/volume) 18.9 pg/mL 9.0-77.0 Bio-intact parathyroid hormone (PTH) measurement with calcium 9.8 % 8.5-10.5 Encounters ACCT No. Visit Date/Time Discharge Status Pt. Type Provider Facility Loc./Unit Complaint [id number] 05/13/2018 12:22:00 05/13/2018 12:50:00 DIS Outpatient CINDY FAUST MD [facility] PREOP RIGHT URETERAL STONE [id number] 05/10/2018 12:10:00 05/10/2018 23:59:59 CLS Outpatient CINDY FAUST MD [facility] RAD RT URET RENAL STONES [id number] 11/23/2017 13:43:00 11/23/2017 23:59:59 CLS Outpatient CINDY FAUST MD [facility] RAD N20.0 [id number] 11/09/2017 09:49:00 11/09/2017 15:40:00 [facility] [id number] 11/08/2017 12:14:00 11/08/2017 23:59:59 CLS Outpatient CINDY FAUST MD [facility] RAD N20.0 RT RENAL STONE [id number] 11/08/2017 15:09:00 11/08/2017 16:26:00 DIS Outpatient CINDY FAUST MD [facility] PREOP RIGHT STONE [id number] 11/05/2017 16:18:00 11/05/2017 23:59:59 CLS Outpatient JIMY LEVINE APRN [facility] RAD RIGHT FLANK PAIN [id number] 02/19/2017 17:46:00 02/23/2017 14:30:00 DIS Inpatient SLAVA SUNG MD [facility] 4TH LEFT FACIAL ABSCESS AND CELLULITIS [id number] 11/18/2016 14:21:00 11/18/2016 18:19:00 DIS Emergency JORDANA SMITH MD [facility] ER SWELLING LEFT SIDE OF FACE [id number] 08/10/2012 10:32:00 08/11/2012 16:40:00 DIS Outpatient YAW RAMSAY MD [facility] ENDOMETRIOSIS; CHRONIC PELVIC PAIN [id number] 08/04/2012 08:33:00 08/04/2012 23:59:59 CLS Outpatient DEVENDRA HIGGINS, YAW Silva [facility] PREOP ENDOMETRIOSIS; CHRONIC PELVIC PAIN [id number] 05/17/2018 07:15:00 ACT Outpatient CINDY FAUST MD [facility] SD RIGHT URETERAL STONE [id number] 03/01/2012 14:35:00 Document Registration [id number] 04/29/2018 09:43:00 04/29/2018 14:21:00 [id number]/27/2018 16:14:00 03/27/2018 18:00:00 [id number] 10/19/2017 15:45:00 10/19/2017 23:59:00 DIS Outpatient ANTONIO SIMENTAL [id number] 03/05/2017 05:44:00 03/05/2017 06:25:00 DIS Outpatient ANTONIO SIMENTAL [id number] 03/04/2017 06:30:00 03/04/2017 07:20:00 DIS Outpatient ANTONIO SIMENTAL [id number] 03/03/2017 06:42:00 03/03/2017 07:25:00 DIS Outpatient ANTONIO SIMENTAL [id number] 03/02/2017 07:00:00 03/02/2017 07:42:00 DIS Outpatient ANTONIO SIMENTAL [id number] 03/01/2017 07:52:00 03/01/2017 08:37:00 DIS Outpatient ANTONIO SIMENTAL [id number] 02/28/2017 10:21:00 02/28/2017 11:00:00 DIS Outpatient ANTONIO SIMENTAL [id number] 02/27/2017 09:09:00 02/27/2017 09:55:00 DIS Outpatient ANTONIO SIMENTAL [id number] 02/26/2017 08:23:00 02/26/2017 09:00:00 DIS Outpatient ANTONIO SIMENTAL [id number] 02/25/2017 08:13:00 02/25/2017 09:09:00 DIS Outpatient ANTONIO SIMENTAL [id number] 02/24/2017 16:08:00 02/24/2017 17:37:00 DIS Outpatient ANTONIO SIMENTAL [id number] 01/01/2017 14:58:00 01/01/2017 23:59:00 DIS Outpatient Mandie Conn [id number] 10/15/2016 05:39:00 10/15/2016 07:15:00 DIS Outpatient KARAN ZHENG [id number] 10/09/2016 09:00:00 10/09/2016 23:59:00 DIS Outpatient Mandie Conn [id number] 03/13/2016 08:42:00 03/13/2016 23:59:00 DIS Outpatient Tavares Aiken [id number] 03/12/2016 11:28:00 03/12/2016 12:45:00 DIS Outpatient SIMENTAL ANTONIO [id number] 02/12/2016 10:48:00 02/12/2016 23:59:00 DIS Outpatient SHARMIN SIMENTALHEL [id number] 01/29/2016 19:39:00 01/29/2016 21:03:00 [place] [facility] [place] [id number] 01/29/2016 20:25:40 Document Registration [id number] 01/01/2017 14:58:00 Document Registration [id number] 03/27/2018 16:14:00 Document Registration
[2018-05-17 07:30] VITALS: BP 139/83
[2018-05-17] MEDS ORDERED: fentaNYL INJECTION 100 MCG/2 ML AMP ONE ×2 (08:08→08:39)
[2018-05-17] MEDS ORDERED: NS IV 500 ML 500 ML IV PRN (08:09)
[2018-05-17] MEDS ORDERED: IBUPROFEN SUSP 100MG/5ML (MOTRIN) UDC PO ONE (08:15)
[2018-05-17] MEDS ORDERED: MIDAZOLAM SYRUP (VERSED) 10MG/5ML UDC PO ONE (08:15)
[2018-05-17] MEDS ORDERED: cefTRIAXone FOR IV USE 1,000 MG in WATER (STERILE) FOR INJECTION 10 ML IV ONE (08:15)
[2018-05-17] MEDS ORDERED: PHENYLEPHRINE 0.25% NASAL SPR (NEO-SYNEPHRINE) 15 ML NS ONE (08:15)
[2018-05-17] MEDS ORDERED: LACTATED RINGERS 1,000 ML IV PRN (08:15)
[2018-05-17] MEDS ORDERED: fentaNYL INJECTION 100 MCG/2 ML AMP IV ONE (08:15)
--- NOTE | 2018-05-17 08:35 | Progress Note-Pre Operative ---
Pre-Operative Progress Note H&P Reviewed The H&P was reviewed, patient examined and no changes noted. Date Seen by Provider: May 17, 2018 Time Seen by Provider: 08:34 Date H&P Reviewed: May 17, 2018 Time H&P Reviewed: 08:34 Pre-Operative Diagnosis: RT URETERAL AND RENAL STONES CINDY FAUST MD May 17, 2018 08:35
--- NOTE | 2018-05-17 08:37 | Diagnostic Imaging Report ---
INDICATION: Right ureteral stone. TECHNIQUE: 2 supine view of the abdomen 7:34 AM CORRELATION STUDY: 05/10/2018 FINDINGS: A 4 mm stone projecting over the central aspect of the right kidney. No definitive calcification over the expected course of either ureter. Linear radiopaque densities in the pelvis is likely fallopian tube occlusion device. Bowel gas pattern appearing unremarkable. Mild severity fecal retention. IMPRESSION: 1. No appreciable change in position of a small stone over the right renal silhouette. Dictated by: Dictated on workstation # [id number]
[2018-05-17] MEDS ORDERED: LIDOCAINE PF 2% 5 ML (XYLOCAINE) VIAL ONE (08:38)
[2018-05-17] MEDS ORDERED: ONDANSETRON 4 MG/2 ML (SDV) Z0FRAN ONE (08:38)
[2018-05-17] MEDS ORDERED: proPOfol 200 MG/20 ML (DIPRIVAN) VIAL IV ONE (08:38)
[2018-05-17] MEDS ORDERED: MIDAZOLAM 2 MG/2 ML (VERSED) VIAL ONE (08:39)
--- NOTE | 2018-05-17 09:16 | Progress Note-Post Operative ---
Post-Operative Progess Note Surgeon (s)/Reducer (s) Surgeon CINDY FAUST MD Reducer: NONE Pre-Operative Diagnosis RT URETERAL AND RENAL STONES Post-Operative Diagnosis SAME Procedure & Operative Findings Date of Procedure 05/17/18 Procedure Performed/Findings RT URETEROSCOPY AND RT RETROGRADE UROGRAM Anesthesia Type GENERAL Estimated Blood Loss Estimated blood loss (mL): NONE Specimens/Packing Specimens Removed NONE Packing: NONE CINDY FAUST MD May 17, 2018 09:16
--- NOTE | 2018-05-17 09:19 | Discharge Inst-Urology ---
Discharge Inst-Urology Discharge Medications New, Converted, or Re-newed RX: RX on Chart Patient Instructions/Follow Up Plan Please make appointment to been seen in office in 3 weeks. Please provide patient with stone risk profile kit with instructions to do as OP Please send stone for analysis Increase oral fluids for 48 hours and then as needed. Diet and Activity as tolerated. If questions or concerns contact your physician Or seek help at emergency department. CINDY FAUST MD May 17, 2018 09:18
[2018-05-17] MEDS ORDERED: IOPAMIDOL 61% 30 ML (ISOVUE 300) VIAL IV ONE (09:41)
[2018-05-17] MEDS ORDERED: SEVOFLURANE (ULTANE) 15 ML INHAL SOLN ONE (09:42)
[2018-05-17] MEDS ORDERED: DEXAMETHASONE 10 MG/ML (DECADRON) 1 ML VIAL ONE (09:43)
[2018-05-17] MEDS ORDERED: ONDANSETRON 4 MG/2 ML (SDV) Z0FRAN IVP PRN (10:00)
[2018-05-17] MEDS ORDERED: morphine INJ 10 MG/ML 1ML (SYR OR VIAL) IVP ONE (10:00)
[2018-05-17] MEDS ORDERED: fentaNYL INJECTION 100 MCG/2 ML AMP IVP ONE (10:00)
[2018-05-17] MEDS ORDERED: MEPERIDINE (DEMEROL) INJ 50 MG/ML IVP ONE (10:00)
[2018-05-17] MEDS ORDERED: PHEN-640 PO (10:34)
[2018-05-17] MEDS ORDERED: NITR-65 PO (10:34)
[2018-05-17 10:35] VITALS: BP 142/91
--- NOTE | 2018-05-17 10:42 | Anesthesia-General Post-Op ---
General Patient Condition Mental Status/LOC: Same as Preop Cardiovascular: Satisfactory Nausea/Vomiting: Absent Respiratory: Satisfactory Pain: Controlled Complications: Absent Post Op Complications Complications None Follow Up Care/Instructions Patient Instructions None needed. Anesthesia/Patient Condition Patient Condition Patient is doing well, no complaints, stable vital signs, no apparent adverse anesthesia problems. No complications reported per nursing. JAMES ABBASI CRNA May 17, 2018 10:42
[2018-05-17] MEDS ORDERED: PHENAZOPYRIDINE 100 MG (PYRIDIUM) TABLET PO ONE (10:45)
[2018-05-17] MEDS ORDERED: PHENAZOPYRIDINE 100 MG (PYRIDIUM) TABLET ONE (10:48)
--- NOTE | 2018-05-17 10:50 | NUR ---
PYRIDIUM 200 MG GIVEN PO FOR C/O INCREASING RIGHT FLANK DISCOMFORT, RATED NOW AT 2-3, INTERMITTENT. VOIDED 75 CC CLEAR YELLOW URINE AFTER ASSIST UP TO BR. GAIT STEADY.
[2018-05-17 11:05] VITALS: BP 156/85
[2018-05-17] MEDS ORDERED: HYDROcodone/APAP 5 MG/325 MG (LORTAB) TAB ONE (11:22)
--- NOTE | 2018-05-17 11:25 | NUR ---
STATES PYRIDIUM HAD BEEN HELPING WITH PAIN, NOW IS INCREASING AGAIN, RATES 3. LORTAB 5/325 MG, ONE TAB, GIVEN PO.
[2018-05-17] MEDS ORDERED: HYDROcodone/APAP 5 MG/325 MG (LORTAB) TAB PO ONE (11:30)
[2018-05-17 11:35] VITALS: BP 153/96
[2018-05-17 11:45] VITALS: BP 153/96
--- NOTE | 2018-05-17 11:45 | NUR ---
HAS VOIDED AGAIN, URINE CLEAR, YELLOW. REPORTS PAIN EASING AGAIN, RATED 1.5-2. STATES SHE IS READY FOR DISMISSAL.
--- NOTE | 2018-05-17 14:31 | OPERATIVE REPORT ---
DATE OF SERVICE: 05/17/2018 REOPERATIVE DIAGNOSIS: Right ureteral and renal stones. POSTOPERATIVE DIAGNOSES: 1. Right ureteral stone passed. 2. Right renal stone. OPERATION PERFORMED: Right ureteroscopy and right retrograde urogram. SURGEON: Darshan Faust MD ANESTHESIA: General. COMPLICATIONS: None. DESCRIPTION OF PROCEDURE: Under satisfactory general anesthesia, the patient in lithotomy position, genitalia were prepped and draped in the usual sterile fashion. Cystoscope was introduced in the bladder. It was essentially normal. Using a foroblique lens, I dilated the right ureteral orifice intramural portion. I passed the catheter all the way up to the mid ureter. There was no resistance, no calcification felt on the way. All the other calcification in the pelvis were outside. I went ahead and removed the cystoscope, inserted the ureteroscope 6.9 Slovak and went into the right ureter all the way up to the mid ureter. There were no stones. I removed the ureteroscope, reinserted the cystoscope, put a catheter in the right ureteral orifice to perform a right retrograde urogram that was negative. No filling defect and complete emptying of the ureter on withdrawing the catheter. I emptied the bladder, removed the cystoscope. The patient tolerated the procedure and anesthesia well and was sent to recovery room in stable condition. PLAN: Renal stone profile was normal. We are going to do an outpatient stone risk profile and see her back in 3 weeks and put her on a regimen hopefully to prevent her from forming more stones. For the small stone in the right kidney, we will observe to be amenable to ESWL. This was fully explained to the patient preoperatively and to her father postoperatively. Job ID: [id number] DocumentID: [id number] Dictated Date: 05/17/2018 09:55:33 Shingle Trimmer Date: 05/17/2018 14:30:39 Dictated By: DARSHAN FAUST MD
--- NOTE | 2018-05-17 14:51 | Diagnostic Imaging Report ---
INDICATION: Ureteral stone. TECHNIQUE: 2 intraprocedural images right retrograde urethrogram CORRELATION STUDY: None FINDINGS: Intraprocedure fluoroscopy utilized by Dr. Mcleod. No radiologist present. Limited intraoperative retrograde urethrogram demonstrates contrast filling of the low ureter. The visualized contrast reveals the ureter is normal in caliber. No definitive filling defect. The kidney and proximal aspect of the ureter are not included in the area imaged. Fluoroscopy Time: 35 seconds IMPRESSION: 1. Limited distal right retrograde urethrogram. Dictated by: Dictated on workstation # [id number]
== END 2018-05-17 11:45 | disposition home or self-care (01) ==
LOC: SDC 07:15
PROVIDERS: ATTEND Urology
DX: N20.2 Calculus of kidney with calculus of ureter (principal); K21.9 Gastro-esophageal reflux disease without esophagitis; F32.9 Major depressive disorder, single episode, unspecified; F17.210 Nicotine dependence, cigarettes, uncomplicated; Z79.899 Other long term (current) drug therapy
CPT/HCPCS: 74018

== ENCOUNTER → 2018-05-18 | Outpatient (CLI) | payer OTHER ==
[~2018-05-18] MED LIST changes: +PHEN-640 PO
== END ==
LOC: LAB 11:03
PROVIDERS: ATTEND Urology
DX: N20.0 Calculus of kidney (principal)
CPT/HCPCS: 36415; 82140; 82340; 82507; 82570; 83735; 83945; 83986; 84105; 84133; 84300; 84392; 84560

== ENCOUNTER 2018-05-21 16:52 | Emergency (ER) | payer OTHER ==
[~2018-05-21] VITALS: Ht 172.7 cm; Wt 122.5 kg
[2018-05-21] MEDS ORDERED: fentaNYL INJECTION 100 MCG/2 ML AMP ONE (17:01)
[2018-05-21 17:08] LABS: BASOPHILS % (AUTO) 0 % (0-10); EOSINOPHILS # (AUTO) 0.2 10^3/uL (0.0-0.3); EOSINOPHILS % (AUTO) 2 % (0-10); HEMATOCRIT 39 % (35-52); HEMOGLOBIN 13.5 G/DL (11.5-16.0); LYMPHOCYTES # (AUTO) 3.7 X 10^3 (1.0-4.0); LYMPHOCYTES % (AUTO) 32 % (12-44); MEAN CORPUSCULAR HEMOGLOBIN 30 PG (25-34); MEAN CORPUSCULAR HGB CONC 34 G/DL (32-36); MEAN CORPUSCULAR VOLUME 89 FL (80-99); MEAN PLATELET VOLUME 10.2 FL (7.4-10.4); MONOCYTES # (AUTO) 0.8 X 10^3 (0.0-1.0); MONOCYTES % (AUTO) 7 % (0-12); NEUTROPHILS # (AUTO) 6.9 X 10^3 (1.8-7.8); NEUTROPHILS % (AUTO) 60 % (42-75); PLATELET COUNT 255 10^3/uL (130-400); RED CELL DISTRIBUTION WIDTH 13.8 % (10.0-14.5); WHITE BLOOD COUNT 11.5 10^3/uL (4.3-11.0)
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
[2018-05-21] MEDS ORDERED: fentaNYL INJECTION 100 MCG/2 ML AMP IVP ONE (17:15)
[2018-05-21 17:31] LABS: ALANINE AMINOTRANSFERASE 22 U/L (0-55); ALKALINE PHOSPHATASE 91 U/L (40-136); BILIRUBIN,TOTAL 0.4 MG/DL (0.1-1.0); BUN/CREATININE RATIO 14; CALCIUM 9.5 MG/DL (8.5-10.1); CARBON DIOXIDE 22 MMOL/L (21-32); CHLORIDE 108 MMOL/L (98-107); CREATININE SERUM 0.74 MG/DL (0.60-1.30); GFR ESTIMATED > 60; GLUCOSE 153 MG/DL (70-105); POTASSIUM 3.7 MMOL/L (3.6-5.0); SODIUM 140 MMOL/L (135-145); TOTAL PROTEIN 6.9 GM/DL (6.4-8.2)
[2018-05-21] MEDS ORDERED: morphine INJ 10 MG/ML 1ML (SYR OR VIAL) ONE (17:33)
[2018-05-21] MEDS ORDERED: morphine INJ 10 MG/ML 1ML (SYR OR VIAL) IVP ONE ×2 (17:45→19:00)
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
--- NOTE | 2018-05-21 20:10 | NUR ---
C-COLLAR REMOVED BY PBATES AT THIS TIME. PT AMBULATING TO RESTROOM
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
[2018-05-21] MEDS ORDERED: RX-HYDROCODONE/APAP 5/325 MG #4 TAB PK PO PRN (20:30)
[2018-05-21 20:32] VITALS: BP 156/103
== END 2018-05-21 20:32 | disposition home or self-care (01) ==
LOC: EDUNIT# 16:52 → ER 16:53
DX: S16.1XXA Strain of muscle, fascia and tendon at neck level, initial encounter (principal); E78.00 Pure hypercholesterolemia, unspecified; G43.909 Migraine, unspecified, not intractable, without status migrainosus; K21.9 Gastro-esophageal reflux disease without esophagitis; F32.9 Major depressive disorder, single episode, unspecified; R40.2142 Coma scale, eyes open, spontaneous, at arrival to emergency department; R40.2252 Coma scale, best verbal response, oriented, at arrival to emergency department; R40.2362 Coma scale, best motor response, obeys commands, at arrival to emergency department; Z85.42 Personal history of malignant neoplasm of other parts of uterus; Z87.19 Personal history of other diseases of the digestive system; Z88.8 Allergy status to other drugs, medicaments and biological substances; Z90.89 Acquired absence of other organs; Z90.710 Acquired absence of both cervix and uterus; Z98.890 Other specified postprocedural states; V48.5XXA Car driver injured in noncollision transport accident in traffic accident, initial encounter; Y92.410 Unspecified street and highway as the place of occurrence of the external cause
CPT/HCPCS: 36415; 70450; 71045; 72125; 74177; 80053; 84703; 85025; 96374; 96375